=== PATIENT | female | born 1975 | race Hispanic/Latino ===

== ENCOUNTER 2017-12-01 15:18 | Emergency (ER) | payer OTHER ==
[~2017-12-01 15:18] MED LIST: ALBU90AE IH; ASPI-555 PO; ATOR10 PO; CANA300T PO; ESCI20TA PO; GABA-529 PO; HYDR200T4 PO; LACT1CAP58 PO; NITR0.4T SL; PANT40TA25 PO; PROM12.510 PO; SITA100T12 PO; TRAM50TA4 PO; VALS160T2 PO
[2017-12-01 15:46] LABS: APPEARANCE,URINE Clear (CLEAR); BILIRUBIN,URINE Negative (NEGATIVE); COLOR,URINE Yellow (YELLOW); GLUCOSE, URINE (UA) >=1000 mg/dL (NEGATIVE); KETONES,URINE Negative (NEGATIVE); LEUKOCYTE ESTERASE ,URINE Negative (NEGATIVE); NITRATE,URINE Negative (NEGATIVE); OCCULT BLOOD,URINE Negative (NEGATIVE); PROTEIN,URINE Negative (NEGATIVE); UROBILINOGEN,URINE 0.2 mg/dL (0.2-1.0)
[2017-12-01 15:49] LABS: HCG,QUAL RESULT NEGATIVE (NEGATIVE)
[2017-12-01 15:53] LABS: BACTERIA,URINE Rare /HPF (None Seen); RBC,URINE 0-1 /HPF (0-1); SQUAMOUS EPITHELIAL CELL,UR Rare /HPF (0-2); WBC,URINE 0-1 /HPF (0-1)
[2017-12-01 16:00] LABS: EOSINOPHILS % (AUTO) 1.1 % (0.0-8.0); HEMATOCRIT 41.7 % (36-48); LYMPHOCYTES % (AUTO) 23.1 % (21.0-51.0); MEAN CORPUSCULAR HEMOGLOBIN 30.6 pg (27.0-33.0); MEAN CORPUSCULAR VOLUME 87.2 fL (79-99); MONOCYTES % (AUTO) 5.8 % (3.0-13.0); PLATELET COUNT (AUTO) 362 K/uL (130-400); RED BLOOD CELL COUNT(AUTO) 4.78 MIL/uL (4.00-5.50); RED CELL DISTRIBUTION WIDTH 12.6 % (11.0-15.5); WHITE BLOOD COUNT (AUTO) 11.9 K/uL (4.8-10.8)
[2017-12-01 16:09] LABS: CREATININE 0.8 mg/dL (0.5-1.5); POTASSIUM 4.4 mmol/L (3.5-5.1)
[2017-12-01 16:13] LABS: ALBUMIN 3.8 g/dL (3.5-5.0); BILIRUBIN,TOTAL 0.2 mg/dL (0.2-1.0); TOTAL PROTEIN, SERUM 7.4 g/dL (6.0-8.3)
[2017-12-01] MEDS ORDERED: MORPHINE SULFATE 4 MG/1ML SYG ONE ×2 (16:25→18:55)
[2017-12-01] MEDS ORDERED: ONDANSETRON HCL MDV 20ML 2 MG/ML VIAL ONE (16:25)
== END 2017-12-01 19:41 | disposition home or self-care (01) ==
LOC: EDH 15:18
DX: R10.9 Unspecified abdominal pain (principal); M79.7 Fibromyalgia; M54.9 Dorsalgia, unspecified; I10 Essential (primary) hypertension; E11.9 Type 2 diabetes mellitus without complications; E78.5 Hyperlipidemia, unspecified; M19.90 Unspecified osteoarthritis, unspecified site; Z88.1 Allergy status to other antibiotic agents; Z88.8 Allergy status to other drugs, medicaments and biological substances
CPT/HCPCS: 36415; 74176; 80053; 81001; 81025; 82550; 83690; 84484; 85025; 96361; 96374; 96375; 96376; 99285; J2270 ×2

== ENCOUNTER → 2018-01-25 | Outpatient (CLI) | payer OTHER | END | disposition home or self-care (01) | LOC: RAH 15:55 | PROVIDERS: ATTEND Internal Medicine | DX: J06.9 Acute upper respiratory infection, unspecified (principal) | CPT/HCPCS: 71046 ==

== ENCOUNTER → 2018-06-08 | Outpatient (CLI) | payer OTHER | END | disposition home or self-care (01) | LOC: RAH 10:11 | PROVIDERS: ATTEND Internal Medicine | DX: M19.072 Primary osteoarthritis, left ankle and foot (principal); M25.472 Effusion, left ankle; M77.32 Calcaneal spur, left foot | CPT/HCPCS: 73610; 73630 ==

== ENCOUNTER → 2018-09-30 | Outpatient (CLI) | payer OTHER | END | disposition home or self-care (01) | LOC: RAH 10:58 | PROVIDERS: ATTEND Internal Medicine | DX: M54.5 Low back pain (principal); M54.6 Pain in thoracic spine | CPT/HCPCS: 72100; 72220 ==

== ENCOUNTER → 2019-01-09 | Outpatient (CLI) | payer OTHER | END | disposition home or self-care (01) | LOC: RAH 15:48 | PROVIDERS: ATTEND Internal Medicine | DX: M79.662 Pain in left lower leg (principal); R40.4 Transient alteration of awareness | CPT/HCPCS: 93971 ==

== ENCOUNTER → 2019-03-22 | Outpatient (CLI) | payer OTHER ==
[~2019-03-22] MED LIST changes: -PROM12.510 PO; +PROM12.513 PO
== END | disposition home or self-care (01) ==
LOC: RAH 11:33
PROVIDERS: ATTEND Internal Medicine
DX: R06.02 Shortness of breath (principal)
CPT/HCPCS: 71046

== ENCOUNTER → 2020-11-07 | Outpatient (CLI) | payer OTHER ==
[~2020-11-07] MED LIST changes: -ASPI-555 PO; +ASPI-556 PO; -PANT40TA25 PO; +PANT40TA54 PO
== END | disposition home or self-care (01) ==
LOC: RAH 11:51
PROVIDERS: ATTEND Internal Medicine
DX: M25.562 Pain in left knee (principal); M25.572 Pain in left ankle and joints of left foot
CPT/HCPCS: 73562; 73610

== ENCOUNTER → 2020-11-21 | Outpatient (CLI) | payer OTHER | END | disposition home or self-care (01) | LOC: RAH 11:43 | PROVIDERS: ATTEND Internal Medicine | DX: M47.812 Spondylosis without myelopathy or radiculopathy, cervical region (principal) | CPT/HCPCS: 72100 ==

== ENCOUNTER → 2020-11-26 | Outpatient (CLI) | payer OTHER | END | disposition home or self-care (01) | LOC: RAH 11:14 | PROVIDERS: ATTEND Internal Medicine | DX: N93.9 Abnormal uterine and vaginal bleeding, unspecified (principal); D25.9 Leiomyoma of uterus, unspecified | CPT/HCPCS: 76856 ==

== ENCOUNTER → 2021-04-02 | Outpatient (CLI) | payer OTHER | END | disposition home or self-care (01) | LOC: RAH 12:36 | PROVIDERS: ATTEND Internal Medicine | DX: N64.4 Mastodynia (principal); M25.552 Pain in left hip | CPT/HCPCS: 73502; 73552 ==

== ENCOUNTER → 2022-01-07 | Outpatient (CLI) | payer OTHER | END | disposition home or self-care (01) | LOC: RAH 09:15 | PROVIDERS: ATTEND Internal Medicine | DX: I73.9 Peripheral vascular disease, unspecified (principal) | CPT/HCPCS: 93925 ==

== ENCOUNTER → 2022-01-15 | Outpatient (CLI) | payer OTHER | END | disposition home or self-care (01) | LOC: RAH 13:19 | PROVIDERS: ATTEND Internal Medicine Cardiovascular Disease | DX: Z13.6 Encounter for screening for cardiovascular disorders (principal) | CPT/HCPCS: 75571 ==

== ENCOUNTER → 2022-01-19 | Outpatient (CLI) | payer OTHER ==
[~2022-01-19] VITALS: Ht 162.6 cm; Wt 101.2 kg
[~2022-01-19] MED LIST changes: +REGADENOSON 0.4 MG/5 ML PF SYG IVP SCH
== END | disposition home or self-care (01) ==
LOC: SHCH 08:45
PROVIDERS: ATTEND Internal Medicine Cardiovascular Disease
DX: R06.09 Other forms of dyspnea (principal); R00.2 Palpitations; R53.83 Other fatigue
CPT/HCPCS: 78452; 93017; 96374; A9500 ×2; J2785

== ENCOUNTER → 2022-11-19 | Outpatient (CLI) | payer OTHER ==
[~2022-11-19] MED LIST changes: -REGADENOSON 0.4 MG/5 ML PF SYG IVP SCH
== END | disposition home or self-care (01) ==
LOC: RAH 13:18
PROVIDERS: ATTEND Internal Medicine
DX: M77.32 Calcaneal spur, left foot (principal); M25.562 Pain in left knee; M79.672 Pain in left foot
CPT/HCPCS: 73560; 73630

== ENCOUNTER → 2023-12-07 | Outpatient (CLI) | payer OTHER ==
[~2023-12-07] MED LIST changes: -HYDR200T4 PO; +HYDR200T75 PO
== END | disposition home or self-care (01) ==
LOC: SHCH 13:47
PROVIDERS: ATTEND Internal Medicine Cardiovascular Disease
DX: I87.2 Venous insufficiency (chronic) (peripheral) (principal); I87.1 Compression of vein
CPT/HCPCS: 93970

== ENCOUNTER → 2024-03-25 | Outpatient (CLI) | payer OTHER | END | disposition home or self-care (01) | LOC: SHCH 13:06 | PROVIDERS: ATTEND Internal Medicine Cardiovascular Disease | DX: I34.0 Nonrheumatic mitral (valve) insufficiency (principal); R00.2 Palpitations; E11.9 Type 2 diabetes mellitus without complications; I10 Essential (primary) hypertension; E78.5 Hyperlipidemia, unspecified | CPT/HCPCS: 93306 ==

== ENCOUNTER 2024-12-21 11:13 | Observation (INO) | payer OTHER, MEDICAID ==
[~2024-12-21] VITALS: Ht 162.6 cm; Wt 103.9 kg
[2024-12-21 11:55] LABS: BASOPHILS # (AUTO) 0.04 K/uL (0.00-0.20); BASOPHILS % (AUTO) 0.6 % (0.0-5.0); EOSINOPHILS # (AUTO) 0.14 K/uL (0.00-0.70); HEMATOCRIT 42.3 % (36-48); IMMATURE GRANULOCYTE ABSOLUTE 0.03 K/uL (0-1); LYMPHOCYTES # (AUTO) 2.9 K/uL (1.0-4.8); LYMPHOCYTES % (AUTO) 41.2 % (21.0-51.0); MEAN CORPUSCULAR HEMOGLOBIN 29.8 pg (27.0-33.0); MEAN CORPUSCULAR HGB CONC 33.6 g/dL (32.0-36.0); MEAN CORPUSCULAR VOLUME 88.9 fL (79-99); MONOCYTES # (AUTO) 0.6 K/uL (0.1-1.0); MONOCYTES % (AUTO) 8.5 % (3.0-13.0); NEUTROPHILS # (AUTO) 3.3 K/uL (1.8-7.7); NEUTROPHILS % (AUTO) 47.3 % (40.0-77.0); PLATELET COUNT (AUTO) 318 K/uL (130-400); RED BLOOD CELL COUNT(AUTO) 4.76 MIL/uL (4.00-5.50); RED CELL DISTRIBUTION WIDTH 12.4 % (11.0-15.5); WHITE BLOOD COUNT (AUTO) 6.9 K/uL (4.8-10.8)
[2024-12-21 11:57] LABS: APPEARANCE,URINE CLOUDY (CLEAR); BILIRUBIN,URINE NEGATIVE (NEGATIVE); COLOR,URINE YELLOW (YELLOW); GLUCOSE, URINE (UA) 30 mg/dL (NEGATIVE); KETONES,URINE 5 mg/dL (NEGATIVE); LEUKOCYTE ESTERASE ,URINE NEGATIVE Leu/uL (NEGATIVE); NITRATE,URINE NEGATIVE (NEGATIVE); OCCULT BLOOD,URINE NEGATIVE (NEGATIVE); PROTEIN,URINE NEGATIVE (NEGATIVE); UROBILINOGEN,URINE 0.2 mg/dL (0.2-1.0)
[2024-12-21 12:02] LABS: CREATININE 0.8 mg/dL (0.5-1.0); POTASSIUM 3.7 mmol/L (3.5-5.1)
[2024-12-21 12:04] LABS: ADD UA MICROSCOPIC YES
[2024-12-21 12:06] LABS: BACTERIA,URINE Rare /HPF (None Seen); MUCUS,URINE Rare LPF (None Seen); SQUAMOUS EPITHELIAL CELL,UR Rare /HPF (0-2)
[2024-12-21 12:21] LABS: B-TYPE NATRIURETIC PEPTIDE 7 pg/mL (0-100)
--- NOTE | 2024-12-21 12:42 | HMCIMG ---
Exam Type: CHEST 1VW Clinical Information: CHEST PAIN Comparison: None Findings: The lungs are clear of infiltrates. The heart is normal in size. The bony and soft tissue structures of the chest are unremarkable. Impression: Clear lungs.
--- NOTE | 2024-12-21 13:29 | EKG ---
[facility] Test Date: 2024-12-21 Test Time: 11:26:38 Pat Name: NYDIA JOHNSON Department: ED Room: 413 Gender: F [place]: [id number] : 1975 Requested By: CINDY LIZ Order Number: [id number] Reading MD: Maribel Tracy Measurements Intervals [place] Rate: 83 P: -6 DE: 114 QRS: 13 QRSD: 75 T: -8 QT: 387 QTc: 455 Interpretive Statements Sinus rhythm Low voltage, precordial leads Compared to ECG 04/14/2017 14:17:03 No significant changes Electronically Signed On 12-22-2024 18:39:23 CDT by Maribel Tracy Please click the below link to view image of tracing.
--- NOTE | 2024-12-21 13:49 | ERN ---
General Chief Complaint: Chest Pain Stated Complaint: CP Time Seen by MD: 11:13 Source: patient History of Present Illness Initial Comments Patient is a 49 year old female coming in to be evaluated for chest pressure. Patient states that the symptoms began a couple of days ago. She was concerned because of the presentation in the location of the discomfort. She states he does not has a history of cardiac issues. Allergies: Coded Allergies: amoxicillin (Unverified Allergy, Unknown, RASH , 02/17/16) duloxetine (Unverified Allergy, Unknown, HALLUCINATIONS, 02/17/16) modafinil (Unverified Allergy, Unknown, N/V STOMACH PAIN, 02/17/16) pregabalin (Unverified Allergy, Unknown, FLUID RETENTION, 02/17/16) Home Meds Active Scripts Lactobacillus Rhamnosus GG (Culturelle) 1 Each Capsule, 1 EACH PO DAILY, #30 CAP Prov:SHAMIR MCKEON MD 04/15/17 Reported Medications Tramadol Hcl (Tramadol HCl) 50 Mg Tablet, 50 MG PO HS PRN for PAIN LEVEL 4 TO 6, TAB 04/14/17 Promethazine HCl (Promethazine HCl) 12.5 Mg Tablet, 12.5 MG PO TID PRN for NAUSEA/VOMITING, TAB 04/14/17 Albuterol Sulfate (Proair Respiclick) 90 Mcg Aer.pow.ba, 90 MCG IH Q3YWOIA PRN for SHORTNESS OF BREATH 04/14/17 Pantoprazole Sodium (Pantoprazole Sodium) 40 Mg Tablet.dr, 40 MG PO AM, TAB 04/14/17 Nitroglycerin (Nitrostat) 0.4 Mg Tab.subl, 0.4 MG SL STAT PRN for CHEST PAIN, TAB.SL 04/14/17 Escitalopram Oxalate (Lexapro) 20 Mg Tablet, 20 MG PO AM, TAB 04/14/17 Canagliflozin (Invokana) 300 Mg Tablet, 300 MG PO HS, TAB 04/14/17 Hydroxychloroquine Sulfate (Hydroxychloroquine Sulfate) 200 Mg Tablet, 200 MG PO BID, TAB 04/14/17 Gabapentin (Gabapentin) 100 Mg Capsule, 100 MG PO BID, CAP 04/14/17 Aspirin (Aspir 81) 81 Mg Tablet.dr, 81 MG PO AM, TAB 04/14/17 Atorvastatin Calcium (LIPITOR) 20 Mg Tab, 20 MG PO HS, TAB 04/14/17 Valsartan (Diovan) 160 Mg Tablet, 160 MG PO HS, TAB 02/17/16 Sitagliptin Phosphate (Januvia) 100 Mg Tablet, 100 MG PO DAILY, TAB 02/17/16 Past Medical History Past Medical History: Diabetes-Type II, High Cholesterol, Hypertension Past Surgical History: Cholecystectomy, BTL Results Laboratory and Microbiology Lab and Micro Result Laboratory Tests Test 12/21/24 11:00 12/21/24 11:29 12/21/24 13:33 White Blood Count 6.9 K/uL (4.8-10.8) Red Blood Count 4.76 MIL/uL (4.00-5.50) Hemoglobin 14.2 g/dL (12.0-16.0) Hematocrit 42.3 % (36-48) Mean Corpuscular Volume 88.9 fL (79-99) Mean Corpuscular Hemoglobin 29.8 pg (27.0-33.0) Mean Corpuscular Hemoglobin Concent 33.6 g/dL (32.0-36.0) Red Cell Distribution Width 12.4 % (11.0-15.5) Platelet Count 318 K/uL (130-400) Mean Platelet Volume 9.1 fL (7.5-10.5) Immature Granulocyte % (Auto) 0.4 % (0-1) Neutrophils (%) (Auto) 47.3 % (40.0-77.0) Lymphocytes (%) (Auto) 41.2 % (21.0-51.0) Monocytes (%) (Auto) 8.5 % (3.0-13.0) Eosinophils (%) (Auto) 2.0 % (0.0-8.0) Basophils (%) (Auto) 0.6 % (0.0-5.0) Neutrophils # (Auto) 3.3 K/uL (1.8-7.7) Lymphocytes # (Auto) 2.9 K/uL (1.0-4.8) Monocytes # (Auto) 0.6 K/uL (0.1-1.0) Eosinophils # (Auto) 0.14 K/uL (0.00-0.70) Basophils # (Auto) 0.04 K/uL (0.00-0.20) Absolute Immature Granulocyte (auto 0.03 K/uL (0-1) Nucleated Red Blood Cells 0.0 % (0.0-0.19) Sodium Level 141 mmol/L (136-145) Potassium Level 3.7 mmol/L (3.5-5.1) Chloride Level 104 mmol/L (101-111) Carbon Dioxide Level 26 mmol/L (21-32) Blood Urea Nitrogen 14 mg/dL (7-18) Creatinine 0.8 mg/dL (0.5-1.0) Glomerular Filtration Rate Calc 90 mL/min (>90) Random Glucose 170 mg/dL (70-105) H Total Calcium 9.1 mg/dL (8.5-10.1) Total Creatine Kinase 42 U/L (21-232) # Troponin I High Sensitivity < 4 ng/L (4-50) L 8 ng/L (4-50) B-Type Natriuretic Peptide 7 pg/mL (0-100) Urine Color YELLOW (YELLOW) Urine Appearance CLOUDY (CLEAR) H Urine pH 5.0 (5.0-8.0) Urine Specific [place] 1.028 (1.001-1.031) Urine Protein NEGATIVE mg/dL (NEGATIVE) Urine Glucose (UA) 30 mg/dL (NEGATIVE) H Urine Ketones 5 mg/dL (NEGATIVE) H Urine Occult Blood NEGATIVE (NEGATIVE) Urine Nitrate NEGATIVE (NEGATIVE) Urine Bilirubin NEGATIVE mg/dL (NEGATIVE) Urine Urobilinogen 0.2 mg/dL (0.2-1.0) Urine Leukocyte Esterase NEGATIVE Cameron/uL Urine RBC 2-5 /HPF (0-1) H Urine WBC 2-5 /HPF (0-1) H Urine WBC Clumps (Auto) /HPF (0-1) Urine Squamous Epithelial Cells Rare /HPF (0-2) Urine Bacteria Rare /HPF (None Seen) EKG/XRAY/US/CT/MRI EKG Comment 12/21/2024 time 11:26 a.m. Ventricular rate 83 Sinus rhythm [place] [address] wave elevation or depression X-RAY Comment [place] [address] [place] [id number] IMAGING REPORT Signed PATIENT: NYDIA JOHNSON MR#: [id number] : 1975 SEX: F AGE: 49 LOCATION: [facility] ORDER 13 STATUS: REG ER REPORT#: [id number] SERVICE [id number] REASON: CHEST PAIN ORDERING PHYSICIAN: CINDY LIZ MD PROCEDURE: CXR1VW - CHEST 1VW Exam Type: CHEST 1VW Clinical Information: CHEST PAIN Comparison: None Findings: The lungs are clear of infiltrates. The heart is normal in size. The bony and soft tissue structures of the chest are unremarkable. Impression: Clear lungs. DICTATED BY: JADE BRAGG MD DATE: 12/21/24 1239 ELECTRONICALLY SIGNED BY: JADE BRAGG MD DATE: 12/21/24 1242 MDM MDM: Differential diagnosis: Chest pain, NSTEMI, Rationale: Tests considered and ordered secondary to shared decision making include: labs, ECG and radiology Previous outside records reviewed: Old ER visits. Risk of complication and/or morbidity or mortality of patient management: None Medications-Per medication reconciliation Need for hospitalization: Patient does meet criteria for hospitalization. Need for emergency major/minor surgery: No There are no social concerns with this patient. Prescription drug management Prescriptions will include symptomatic care Patient's prior external medical records from other ER visits were reviewed by me as indicated. Prior testing and results from previous visits were reviewed. Prior tests were taken into account with medical decision making and resource utilization, independent historian/historians were used to obtain complete medical history. I independently interpreted the test that were performed, results were reviewed by me and considered findings on radiology if ordered. Medical management and examination interpretation discussions were had by me with other qualified healthcare professionals as indicated for the patient's care. Patient is a 49-year-old female coming in to be evaluated for chest pressure chest discomfort. She states that the this has been ongoing for a couple of days but has been progressively getting worse. Laboratory workup negative for acute findings. But because of the chest pressure patient will be admitted for ongoing evaluation and management. ED Course Orders Procedure Category Date Status Time Vital Signs Per CPOE 12/21/24 Transmitted Routine 11:13 B-Type Natriuretic LAB 12/21/24 Complete Peptide 11:13 Chest 1vw RAD 12/21/24 Resulted 11:13 12 Lead Ekg Tracing- EKG 12/21/24 Complete Technical 11:13 Oxygen By Nc/Pulse Ox CPOE 12/21/24 Transmitted 11:13 Maintain Iv CPOE 12/21/24 Transmitted 11:13 Iv Insertion CPOE 12/21/24 Transmitted 11:13 Cardiac Monitoring CPOE 12/21/24 Transmitted 11:13 Pulse Oximetry With CPOE 12/21/24 Transmitted Vs And Prn 11:13 Cbc With Differential LAB 12/21/24 Complete 11:13 Activity: Br W/Brp CPOE 12/21/24 Transmitted With Assist 11:13 Creatine Kinase, Total LAB 12/21/24 Complete 11:13 Troponin I High LAB 12/21/24 Complete Sensitivity 11:13 Urinalysis Profile LAB 12/21/24 Complete 11:13 Basic Metabolic Panel LAB 12/21/24 Complete 11:13 Troponin I High LAB 12/21/24 Complete Sensitivity 13:12 Ondansetron 4mg Inj PHA 12/21/24 Complete (Zofran 4mg Inj) 14:00 Lidocaine Hcl 2% PHA 12/21/24 Complete Viscous (Lidocaine Hcl 14:00 Mag/Alum/Simeth 30ml PHA 12/21/24 Complete (Maalox Plus 30ml) 14:00 Pantoprazole 40mg Inj PHA 12/21/24 Complete (Protonix 40mg Inj 14:00 Ketorolac PHA 12/21/24 Complete Tromethamine 30mg/Ml 15:00 Current Medications Medications (Trade) Dose Ordered Sig/Shon Route PRN Reason Start Time Stop Time Status Last Admin Dose Admin Al Hydroxide/Mg Hydroxide (MAALox PLUS 30ML) 30 ml ONCE ONCE PO 12/21/24 14:00 12/21/24 14:01 DC 12/21/24 13:57 Ketorolac Tromethamine (toRADol) 30 mg ONCE ONCE IVP 12/21/24 15:00 12/21/24 15:01 DC 12/21/24 15:03 Lidocaine HCl (Lidocaine HCl 2% Viscous) 10 ml ONCE ONCE PO 12/21/24 14:00 12/21/24 14:01 DC 12/21/24 13:57 Ondansetron HCl (zoFRAN 4MG INJ) 4 mg ONCE ONCE IVP 12/21/24 14:00 12/21/24 14:01 DC 12/21/24 13:57 Pantoprazole Sodium (PROTonix 40MG INJ) 40 mg ONCE ONCE IVP 12/21/24 14:00 12/21/24 14:01 DC 12/21/24 13:57 Vital Signs Date Time Temp Pulse Resp B/P (MAP) Pulse Ox O2 Delivery O2 Flow Rate FiO2 12/21/24 13:35 97.9 75 16 175/99 98 Room Air* 0 21 12/21/24 12:35 98.1 75 16 171/96 98 Room Air* 0 21 12/21/24 11:20 98.1 80 16 98 Room Air* 0 21 12/21/24 11:15 98.1 80 20 201/104 100 Room Air 0 DX & DISP Disposition: Inpatient Decision to Admit Time: 15:25 Departure Impression: Primary Impression: Chest pain Additional Impressions: Chest pressure, Shortness of breath Condition: Stable Referrals: WEST ROACH MD (PCP) CINDY LIZ MD December 21, 2024 13:49
[2024-12-21] MEDS: ondanSETRON 4MG INJ IVP ONE (13:57)
[2024-12-21] MEDS: LIDOCAINE HCL 2% VISCOUS 15 ML UDCUP PO ONE (13:57)
[2024-12-21] MEDS: MAG/ALUM/SIMETH 30 ML UDCUP PO ONE (13:57)
[2024-12-21] MEDS: PANTOPrazole 40 MG/VIAL IVP ONE (13:57)
[2024-12-21] MEDS: ketOROlac 30MG VIAL (30MG/ML) IVP ONE (15:03)
[2024-12-21] MEDS ORDERED: NITROGLYCERIN 0.4 MG SL TAB SL PRN ×2 (15:30→16:30)
[2024-12-21] MEDS ORDERED: guaiFENesin-DM 200/20MG 10ML PO PRN (16:30)
[2024-12-21] MEDS ORDERED: MAGNESIUM 2GM PREMIX 50ML 50 ML IV PRN (16:30)
[2024-12-21] MEDS ORDERED: LACTULOSE 20 GM/30 ML UDCUP PO PRN (16:30)
[2024-12-21] MEDS ORDERED: DEXTROSE 50%-WATER 50 ML DISP.SYRIN IV PRN (16:30)
[2024-12-21] MEDS ORDERED: ondanSETRON 4MG INJ IV PRN (16:30)
[2024-12-21] MEDS ORDERED: ketOROlac 15MG/ML VIAL (15MG/ML) IV PRN (16:30)
[2024-12-21] MEDS ORDERED: DiphenhydrAMINE HCL 50 MG/ML VIAL IV PRN (16:30)
[2024-12-21] MEDS ORDERED: PoTASSium chloRIDE 20MEQ ER 20 MEQ ERTAB PO PRN (16:30)
[2024-12-21] MEDS: INSULIN humuLIN R 100 UNIT/ML 3ML SQ SCH (16:30)
[2024-12-21] MEDS ORDERED: acetaMINOPHEN 325 MG TAB PO PRN ×2 (16:30)
[2024-12-21] MEDS ORDERED: ZOLPidem TARTrate 5 MG TAB PO PRN (16:30)
[2024-12-21] MEDS ORDERED: MAG/ALUM/SIMETH 30 ML UDCUP PO PRN (16:30)
[2024-12-21] MEDS ORDERED: PoTASSium chloRIDE 20MEQ/100ML 100 ML IV PRN (16:30)
[2024-12-21] MEDS ORDERED: FAMOTIDINE 20MG VIAL IV PRN (16:30)
[2024-12-21] MEDS ORDERED: GLUCAGON 1MG KIT 1 MG ML IM PRN (16:30)
[2024-12-21] MEDS ORDERED: PoTASSium chl 10% ELIXIR 20MEQ 20 MEQ/15 ML UDCUP PO PRN (16:30)
[2024-12-21] MEDS: PoTASSium chloRIDE 20MEQ ER 20 MEQ ERTAB PO ONE (17:12)
[2024-12-21] MEDS: ASPIRIN 325MG EC TAB PO ONE (17:13)
--- NOTE | 2024-12-21 18:14 | HP ---
[facility] HISTORY AND PHYSICAL Date of Service: December 21, 2024 Time of Service: 18:03 PCP: DR WEST ROACH Admitting: Dr Swenson, Allergies: AMOXICILLIN, DULOXETINE, MODAFINIL, PREGABALIN HISTORY OF PRESENT ILLNESS: [ PATIENT IS 49 YEARS OLD FEMALE WITH A PAST MEDICAL HISTORY OF DIABETES, HYPERTENSION, HYPERLIPIDEMIA, OBSTRUCTIVE SLEEP APNEA ON CPAP, COPD, ASTHMA, TONSILLECTOMY, CHOLECYSTECTOMY, WHO CAME TO EMERGENCY DEPARTMENT WITH A COMPLAINT OF CHEST PRESSURE. PATIENT STILL DID THAT THE SYMPTOMS BEGAN ABOUT 10:30 A.M. WHEN SHE WAS SITTING. PATIENT DENIES EATING OR DRINKING ANYTHING HOT OCCULT AT THAT MOMENT. PATIENT STATED THAT IT FELT LIKE SOMETHING IS SITTING ON HER CHEST AND SQUEEZING HER. PATIENT DENIES ANY RADIATION OF THE PAIN. PATIENT STATED THAT SHE FEELS A PRESSURE 8/10 ESPECIALLY WHEN SHE BREATHES IN WHEN SHE BREATHS OUT THE PRESSURE GOES AWAY. SHE HAS A PATIENT OF DR. RAJPUT FROM [facility] [address] HER NEXT APPOINTMENT IS DECEMBER 29, 2024 MOST RECENT VITAL SIGNS TEMPERATURE 97.9 PULSE 75 RESPIRATIONS 16 BLOOD PRESSURE 171/96, PATIENT IS ON ROOM AIR SATTING 98%. WBC 6.9 HEMOGLOBIN 14.2 HEMATOCRIT 42.3 PLATELETS 318 SODIUM 141 POTASSIUM 3.7 CO2 26 BUN 14 CREATININE 0.8 GFR 90 RANDOM GLUCOSE 170 TROPONIN NEGATIVE X2 BNP 7 URINALYSIS NEGATIVE. CHEST X-RAY CLEAR LUNGS. 2D ECHO PENDING PATIENT WILL BE ADMITTED UNDER HOSPITALIST CARE FOR FURTHER EVALUATION/RECOMM ENDATION. A.M. LABS. REVIEW OF SYSTEMS CONSTITUTIONAL: Denies fevers, chills, or night sweats. No unintentional weight loss reported. NEUROLOGICAL: Denies headache, amaurosis fugax, motor weakness, sensory deficit, vertigo/spinning sensation, gait abnormalities, or tremors. ENT: No hearing loss, otalgia, otorrhea, rhinitis, rhinorrhea, hoarseness, or sore throat. CARDIOVASCULAR: Denies any dyspnea on exertion, orthopnea, paroxysmal nocturnal dyspnea, palpitations, life-threatening arrhythmias, claudication. COMPLAINS OF CHEST PRESSURE PULMONARY: Denies any shortness of breath, cough, phlegm/sputum, hemoptysis, pleuritic chest pain. SLEEP: Denies morning headaches, daytime somnolence or napping. Denies difficulty falling asleep, staying asleep, waking from sleep. Denies knowledge of snoring. GASTROINTESTINAL: Denies any type of dysphagia to either liquids or solids. Denies nausea, vomiting, pyrosis, early satiety, abdominal pain, diarrhea, constipation, or changes in stool consistency or caliber. Denies coffee-ground emesis, hematemesis, hematochezia, or melanotic stools. GENITOURINARY: Denies frequency, urgency, nocturia, hematuria or incontinence (Storage/Irritative symptoms.) Low urinary stream, straining to void, urinary intermittency or hesitancy, splitting of the voiding stream, terminal dribbling. ENDOCRINOLOGIC: Denies polyuria, polydipsia, polyphagia or heat/cold intolerances. HEMATOLOGIC: Denies thrombophilia/previous clots, or coagulopathy/bleeding diso rders. ONCOLOGIC: Denies personal history of malignancy. DERMATOLOGIC: Denies rashes or pruritus. PSYCHIATRIC: Denies any suicidal or homicidal ideation. Denies hallucinations. PAST MEDICAL HISTORY: [DIABETES, HYPERTENSION, HYPERLIPIDEMIA, OBSTRUCTIVE SLEEP APNEA ON CPAP, F IBROMYALGIA, COPD, ASTHMA, RHEUMATOID ARTHRITIS, GASTROENTERITIS ] PAST SURGICAL HISTORY: [ TONSILLECTOMY, CHOLECYSTECTOMY, CYST ON BACK THAT WAS REMOVED] PAST SOCIAL HISTORY: [ PATIENT DRINKS OCCASIONALLY. PATIENT DENIES ANY DRUG ILLICIT. PATIENT DENIES SMOKING ] FAMILY HISTORY: [ PATIENT LIVES AT HOME WITH HER CHILD. PATIENT IS INDEPENDENT. ] Coded Allergies: amoxicillin (Unverified Allergy, Unknown, RASH , 02/17/16) duloxetine (Unverified Allergy, Unknown, HALLUCINATIONS, 02/17/16) modafinil (Unverified Allergy, Unknown, N/V STOMACH PAIN, 02/17/16) pregabalin (Unverified Allergy, Unknown, FLUID RETENTION, 02/17/16) PHYSICAL EXAM GENERAL APPEARANCE: The patient is awake, alert, and oriented, in no acute cardiopulmonary distress. NEUROLOGICAL: Cranial nerves II-XII grossly intact. Motor is 5/5 in bilateral upper and lower extremities proximal to distal. No sensory deficits. HEENT: Face is symmetric. Pupils are equal and reactive. Extraocular movements are intact. NECK: Supple. No JVD. No thyromegaly. No submental, submandibular, pre- /postauricular, occipital or supraclavicular lymphadenopathy. CHEST: Normal chest expansion. No Telemetry. LUNGS: Absence of any rales, rhonchi or any wheezing. CARDIOVASCULAR: Regular. S1 and S2 normal. No appreciable rubs, murmurs or gallops. ABDOMEN: Soft, nontender, and nondistended. There is no rebound, voluntary guarding, or rigidity. : Deferred. No Gray. EXTREMITIES: Non-edematous and not cyanotic. No clubbing. Good capillary refill. SKIN: No skin breakdown. Vital Sign (Last 24 Hours) 12/21/24 13:35 Temp 97.9 Pulse 75 Resp 16 B/P (MAP) 175/99 Pulse Ox 98 O2 Delivery Room Air* O2 Flow Rate 0 FiO2 21 LABS: Laboratory: Test 12/21/24 16:54 12/21/24 13:33 12/21/24 11:29 12/21/24 11:00 Range/Units Whole Blood Glucose 127 H 70-110 MG/DL Troponin I High Sensitivity 8 4-50 ng/L Urine Color YELLOW YELLOW Urine Appearance CLOUDY H CLEAR Urine pH 5.0 5.0-8.0 Urine Specific [place] 1.028 1.001-1.031 Urine Protein NEGATIVE NEGATIVE mg/dL Urine Glucose (UA) 30 H NEGATIVE mg/dL Urine Ketones 5 H NEGATIVE mg/dL Urine Occult Blood NEGATIVE NEGATIVE Urine Nitrate NEGATIVE NEGATIVE Urine Bilirubin NEGATIVE NEGATIVE mg/dL Urine Urobilinogen 0.2 0.2-1.0 mg/dL Urine Leukocyte Esterase NEGATIVE NEGATIVE Cameron/uL Urine RBC 2-5 H 0-1 /HPF Urine WBC 2-5 H 0-1 /HPF Urine WBC Clumps (Auto) 0-1 /HPF Urine Squamous Epithelial Cells Rare 0-2 /HPF Urine Bacteria Rare None Seen /HPF White Blood Count 6.9 4.8-10.8 K/uL Red Blood Count 4.76 4.00-5.50 MIL/uL Hemoglobin 14.2 12.0-16.0 g/dL Hematocrit 42.3 36-48 % Mean Corpuscular Volume 88.9 79-99 fL Mean Corpuscular Hemoglobin 29.8 27.0-33.0 pg Mean Corpuscular Hemoglobin Concent 33.6 32.0-36.0 g/dL Red Cell Distribution Width 12.4 11.0-15.5 % Platelet Count 318 130-400 K/uL Mean Platelet Volume 9.1 7.5-10.5 fL Immature Granulocyte % (Auto) 0.4 0-1 % Neutrophils (%) (Auto) 47.3 40.0-77.0 % Lymphocytes (%) (Auto) 41.2 21.0-51.0 % Monocytes (%) (Auto) 8.5 3.0-13.0 % Eosinophils (%) (Auto) 2.0 0.0-8.0 % Basophils (%) (Auto) 0.6 0.0-5.0 % Neutrophils # (Auto) 3.3 1.8-7.7 K/uL Lymphocytes # (Auto) 2.9 1.0-4.8 K/uL Monocytes # (Auto) 0.6 0.1-1.0 K/uL Eosinophils # (Auto) 0.14 0.00-0.70 K/uL Basophils # (Auto) 0.04 0.00-0.20 K/uL Absolute Immature Granulocyte (auto 0.03 0-1 K/uL Nucleated Red Blood Cells 0.0 0.0-0.19 % Sodium Level 141 136-145 mmol/L Potassium Level 3.7 3.5-5.1 mmol/L Chloride Level 104 101-111 mmol/L Carbon Dioxide Level 26 21-32 mmol/L Blood Urea Nitrogen 14 7-18 mg/dL Creatinine 0.8 0.5-1.0 mg/dL Glomerular Filtration Rate Calc 90 >90 mL/min Random Glucose 170 H 70-105 mg/dL Total Calcium 9.1 8.5-10.1 mg/dL Total Creatine Kinase 42 # 21-232 U/L B-Type Natriuretic Peptide 7 0-100 pg/mL Current Medications Medications (Trade) Dose Ordered Sig/Shon Route PRN Reason Start Time Stop Time Status Last Admin Dose Admin Acetaminophen (TYLenol 325MG TAB) 650 mg Q4H PRN PO MILD PAIN (1-3) 12/21/24 16:30 01/20/25 16:29 Acetaminophen (TYLenol 325MG TAB) 650 mg Q6H PRN PO MILD PAIN (1-3) 12/21/24 16:30 01/20/25 16:29 Acetaminophen (TYLenol 325MG TAB) 650 mg Q6H PRN PO TEMPERATURE GREATER THAN 101.5 12/21/24 16:30 01/20/25 16:29 Al Hydroxide/Mg Hydroxide (MAALox PLUS 30ML) 30 ml Q6H PRN PO INDIGESTION 12/21/24 16:30 01/20/25 16:29 Aspirin (Aspirin 81mg Ec Tab) 81 mg DAILY PO 12/22/24 09:00 01/21/25 08:59 Atorvastatin Calcium (LIPItor 40MG) 40 mg HS PO 12/21/24 21:00 01/20/25 20:59 Clopidogrel Bisulfate (plaVIX 75MG) 75 mg DAILY PO 12/22/24 09:00 01/21/25 08:59 Dextrose (D50w) 50 ml AD PRN IV HYPOGLYCEMIA PROTOCOL 12/21/24 16:30 01/20/25 16:29 Diphenhydramine HCl (BENAdryl INJ) 25 mg Q6H PRN IV SEVERE ITCHING/RASH 12/21/24 16:30 01/20/25 16:29 Famotidine (Pepcid 20mg Vial) 20 mg BID IV 12/21/24 21:00 01/20/25 20:59 Famotidine (Pepcid 20mg Vial) 20 mg BID PRN IV NAUSEA/VOMITING 12/21/24 16:30 01/20/25 16:29 Glucagon (Glucagon 1mg Kit) 1 mg AD PRN IM HYPOGLYCEMIA PROTOCOL 12/21/24 16:30 01/20/25 16:29 Guaifenesin/ Dextromethorphan (RobiTUSSin DM 200/20MG 10ML) 10 ml Q4H PRN PO COUGH 12/21/24 16:30 01/20/25 16:29 Heparin Sodium (Porcine) (HEParin 5,000 UNIT VIAL) 5,000 unit BID SQ 12/21/24 21:00 01/20/25 20:59 Hydralazine HCl (APRESOLine 20MG INJ) 10 mg Q6H PRN IV For:SBP above 160;DBP above 90 12/21/24 16:30 01/20/25 16:29 Insulin Human Regular (humuLIN R 100 UNIT/ML 3ML) INSULIN SLIDING SCAL... ACHS SQ 12/21/24 16:30 01/20/25 16:29 Ketorolac Tromethamine (toRADol) 15 mg Q8H PRN IV MODERATE PAIN (4-6) 12/21/24 16:30 12/26/24 16:29 Lactulose (Constulose 20gm/ 30ml Udcup) 20 gm BID PRN PO CONSTIPATION 12/21/24 16:30 01/20/25 16:29 Magnesium Sulfate 50 ml @ 0 mls/hr PROTOCOL PRN IV other 12/21/24 16:30 01/20/25 16:29 Morphine Sulfate (morPHINE 2MG SYG) 1 mg Q4H PRN IVP SEVERE PAIN (7-10) 12/21/24 16:30 12/28/24 16:29 Nitroglycerin (Nitrostat) 0.4 mg AD PRN SL CHEST PAIN 12/21/24 15:30 01/20/25 15:29 Nitroglycerin (Nitrostat) 0.4 mg PROTOCOL PRN SL CHEST PAIN 12/21/24 16:30 01/20/25 16:29 Ondansetron HCl (zoFRAN 4MG INJ) 4 mg Q6H PRN IV NAUSEA/VOMITING 12/21/24 16:30 01/20/25 16:29 Oxycodone/ Acetaminophen (perCOCET) 1 tab Q6H PRN PO SEVERE PAIN (7-10) 12/21/24 16:30 12/28/24 16:29 Potassium Chloride 100 ml @ 100 mls/hr AD PRN IV POTASSIUM PROTOCOL 12/21/24 16:30 01/20/25 16:29 Potassium Chloride (K-Dur/Klor-Con 20meq) 20 meq AD PRN PO POTASSIUM PROTOCOL 12/21/24 16:30 01/20/25 16:29 Potassium Chloride (KCl 10% Elixir 20meq/15ml) 20 meq AD PRN PO POTASSIUM PROTOCOL 12/21/24 16:30 01/20/25 16:29 Zolpidem Tartrate (AmbIEN) 5 mg HS PRN PO INSOMNIA 12/21/24 16:30 01/20/25 16:29 DIAGNOSTICS / RADIOLOGY: [ ] ASSESSMENT: [ ACUTE HYPOXIC RESPIRATORY FAILURE POA EMERGENCY HYPERTENSION POA ACUTE CHEST PRESSURE POA UNCONTROLLED DIABETES MELLITUS TYPE 2 WITH HYPOGLYCEMIA HYPERLIPIDEMIA POA OBSTRUCTIVE SLEEP APNEA ON CPAP POA FIBROMYALGIA POA COPD NOT EXACERBATION POA ASTHMA NOT EXACERBATION POA HISTORY OF GASTROENTERITIS RHEUMATOID ARTHRITIS POA MORBID OBESITY POA HISTORY OF TONSILLECTOMY HISTORY OF CHOLECYSTECTOMY HISTORY OF SKIN TAG/CYST REMOVAL ON BACK] PLAN: [ ADMIT TO: MEDICAL-SURGICAL WITH TELEMETRY 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 FALL PRECAUTIONS. WELL LIGHTED ROOM THROUGH THE DAY AND MINIMIZE INTERRUPTIONS THROUGH THE NIGHT TO PREVENT ACUTE DELIRIUM. PULMONARY: CHEST X-RAY CLEAR LUNGS SUPPLEMENTAL 02 NEEDED BIPAP NECESSARY, FOR RESPIRATORY DISTRESS TITRATE FIO2 TO KEEP SPO2 > OR = 90% DUONEBS AND CPT NEEDED IS HOURLY WHILE AWAKE FOR PULMONARY HYGIENE OUT OF BED TO CHAIR TOLERATED VAP BUNDLE MAINTAIN ASPIRATION PRECAUTIONS AT ALL TIMES CARDIOVASCULAR: 2D ECHO PENDING CARDIOLOGY CONSULTATION PENDING FOLLOW HEMODYNAMICS. VITAL SIGNS PER FACILITY PROTOCOL GI & NUTRITION: CONTINUE NUTRITIONAL SUPPORT ASPIRATIONS PRECAUTIONS PROKINETIC AGENTS AND LAXATIVES NEEDED KIDNEYS & ELECTROLYTES: STRICT MONITORING OF INTAKE AND OUTPUT DAILY WEIGHTS AVOID NEPHROTOXIC AGENTS MONITOR ELECTROLYTES AND REPLACE NEEDED GOAL URINE OUTPUT OF 30ML/HR OR 0.5ML/KG/HR MEDICATIONS TO BE DOSED ACCORDING TO RENAL FUNCTION. AVOID CONTRAST IF POSSIBLE ENDOCRINE: MAINTAIN BLOOD GLUCOSE BETWEEN 100-180 AT ALL TIMES. INSULIN SLIDING SCALE FOR BLOOD GLUCOSE MANAGEMENT HYPOGLYCEMIA AND HYPERGLYCEMIA PROTOCOL IN PLACE INFECTIOUS DISEASE: TREND TEMPERATURE, WBC AND PROCALCITONIN LEVEL FOLLOW CULTURES, DEESCALATE ANTIBIOTICS SOON POSSIBLE. PANCULTURE IF NEW ONSET FEVER HEMATOLOGY & COAGULATION: MONITOR H&H. KEEP HGB > 7 TRANSFUSE 1 UNIT OF PRBC FOR HGB < 7 TRANSFUSE 1 PACK OF PLATELETS OF PLATELETS < 20, 000 WATCH FOR ANY SIGNS AND SYMPTOMS OF BLEEDING SKIN: PRESSURE ULCER PREVENTION PER FACILITY PROTOCOL SPECIALTY MATTRESS NEEDED TREATMENT PLAN DISCUSSED WITH PATIENT AND FAMILY AT THE BEDSIDE MEDICATIONS TO BE RECONCILED ONCE OBTAINED BY PATIENT AND/OR FAMILY AND AVAILABLE TO BE RECONCILED IN COMPUTER P.R.N. MEDICATION FOR PAIN NAUSEA AND VOMITING QUESTIONS WERE ANSWERED WE WILL CONTINUE TO MONITOR THE PATIENT CLOSELY EMERGENCY MEDICINE PHYSICIAN ASSISTANT FOR DISPOSITION REHAB: PT/OT GI: PPI DVT: SCD'S CODE STATUS: FULL RESUSCITATION DISPOSITION: TBD PROGNOSIS: GUARDED] ADVANCED CARE PLANNING 1. Which of the following were discussed? Hospice Care - Yes / No Therapeutic options - Yes / No Advance Directives - Yes / No Other discussions - 2. Discussed with who? PT AND 3. Voluntary nature of this service was explained to the patient? Yes / No 4. Amount of time spent - ___MORE THAN 35 MIN____ 5. Reviewed by Physician? (if this service was performed by NPP) Yes / No ATTESTATION BY PHYSICIAN I have seen and examined the patient. I reviewed the documentation, medical decision making, and treatment plan as noted by the mid-level provider above. I agree with the findings and plan of care. YASMIN TRINIDAD MD [employer] December 21, 2024 18:14
[2024-12-21] MEDS: atorVAStatin 40 MG TABLET PO SCH (20:06)
[2024-12-21] MEDS: FAMOTIDINE 20MG VIAL IV SCH (20:06)
[2024-12-21] MEDS: morPHINE 2 MG SYG IVP PRN (20:07)
[2024-12-21] MEDS: HEParin 5,000 UNIT VIAL SQ SCH (20:07)
[2024-12-21 20:13] LABS: COVID19 (SARS ANTIGEN RAPID) PRESUMPTIVE NEGATIVE (NEGATIVE); INFLUENZA TYPE A Negative For Type A (NEGATIVE); INFLUENZA TYPE B Negative For Type B (NEGATIVE)
[2024-12-21] MEDS: hydrALAZine 20MG/ML VIAL IV PRN (21:21)
[2024-12-21 21:50] LABS: AMPHET/METH SCREEN,URINE NEGATIVE (NEGATIVE); BARBITURATE SCREEN, URINE NEGATIVE (NEGATIVE); BENZODIAZEPINES SCREEN,URINE NEGATIVE (NEGATIVE); CANNABINOID SCREEN,URINE NEGATIVE (NEGATIVE); COCAINE SCREEN,URINE NEGATIVE (NEGATIVE); OPIATE SCREEN,URINE NEGATIVE (NEGATIVE); PHENCYCLIDINE SCREEN,URINE NEGATIVE (NEGATIVE)
[2024-12-22] MEDS: acetaMINOPHEN 325 MG TAB PO PRN (01:05)
[2024-12-22 07:32] LABS: BASOPHILS # (AUTO) 0.03 K/uL (0.00-0.20); BASOPHILS % (AUTO) 0.5 % (0.0-5.0); EOSINOPHILS # (AUTO) 0.15 K/uL (0.00-0.70); EOSINOPHILS % (AUTO) 2.5 % (0.0-8.0); IMMATURE GRANULOCYTE ABSOLUTE 0.01 K/uL (0-1); LYMPHOCYTES # (AUTO) 2.3 K/uL (1.0-4.8); LYMPHOCYTES % (AUTO) 38.4 % (21.0-51.0); MEAN CORPUSCULAR HEMOGLOBIN 30.2 pg (27.0-33.0); MEAN CORPUSCULAR HGB CONC 33.9 g/dL (32.0-36.0); MEAN CORPUSCULAR VOLUME 88.9 fL (79-99); MONOCYTES # (AUTO) 0.6 K/uL (0.1-1.0); MONOCYTES % (AUTO) 9.8 % (3.0-13.0); NEUTROPHILS # (AUTO) 2.9 K/uL (1.8-7.7); NEUTROPHILS % (AUTO) 48.6 % (40.0-77.0); PLATELET COUNT (AUTO) 311 K/uL (130-400); RED BLOOD CELL COUNT(AUTO) 4.61 MIL/uL (4.00-5.50); RED CELL DISTRIBUTION WIDTH 12.6 % (11.0-15.5)
[2024-12-22 07:44] LABS: ALANINE AMINOTRANSFERASE 46 U/L (12-78); ALBUMIN 3.5 g/dL (3.5-5.0); AMMONIA < 10 umol/L (11-32); ASPARTATE AMINOTRANSFERASE 39 U/L (10-37); BILIRUBIN,DIRECT 0.1 mg/dL (0.0-0.3); BILIRUBIN,TOTAL 0.4 mg/dL (0.2-1.0); CARBON DIOXIDE 23 mmol/L (21-32); CHLORIDE 103 mmol/L (101-111); CREATINE KINASE, TOTAL 31 U/L (21-232); CREATININE 0.8 mg/dL (0.5-1.0); GLOMERULAR FILTR. RATE CALC 90 mL/min (>90); GLUCOSE,RANDOM 203 mg/dL (70-105); POTASSIUM 4.1 mmol/L (3.5-5.1); SODIUM SERUM 140 mmol/L (136-145); TOTAL PROTEIN, SERUM 6.9 g/dL (6.0-8.3); UREA NITROGEN, BLOOD 16 mg/dL (7-18)
[2024-12-22] MEDS: ASPIRIN 81 MG EC TAB PO SCH (09:23)
[2024-12-22] MEDS: cloPIDOgrel 75MG TAB PO SCH (09:24)
--- NOTE | 2024-12-22 10:25 | CONS ---
[facility] CARDIOLOGY CONSULTATION NOTE Date Patient Seen: December 22, 2024 Time of Visit: 10:19 Reason for Consultation: [chest pain ] History of Present Illness: [ Patient is a 49 yo F with PMH SANA, HTN who presents with chest pain. She was with her dad at the stress test imaging center and while sitting in the chair waiting for him, she developed 10/10 chest pressure and was associated with shortness of breath. She last saw Dr Baxter in 06/2024. She had sinus tachycardia on Holter. She had normal stress test in 2021. Trop negative. ECG no acute ST-T changes. ] PAST MEDICAL HISTORY: [DIABETES, HYPERTENSION, HYPERLIPIDEMIA, OBSTRUCTIVE SLEEP APNEA ON CPAP, FIBROMYALGIA, COPD, ASTHMA, RHEUMATOID ARTHRITIS, GASTROENTERITIS ] PAST SURGICAL HISTORY: [ TONSILLECTOMY, CHOLECYSTECTOMY, CYST ON BACK THAT WAS REMOVED] PAST SOCIAL HISTORY: [ PATIENT DRINKS OCCASIONALLY. PATIENT DENIES ANY DRUG ILLICIT. PATIENT DENIES SMOKING ] FAMILY HISTORY: [ PATIENT LIVES AT HOME WITH HER CHILD. PATIENT IS INDEPENDENT. ] Home Meds: [ ] Current Meds: [ ] Review of Systems: CONST: [No fever, fatigue, or weight changes.] EYES: [No recent vision problems.] ENT: [No congestion, ear pain, or sore throat.] C/V: [+ chest pain, No palpitations, or edema.] RESP: [No cough, congestion, wheezing or shortness of breath.] GI: [No abdominal pain, nausea, vomiting, constipation, or diarrhea.] : [No incontinence or dysuria.] SKIN: [No rash.] NEURO: [No headache, focal numbness or weakness, dizziness, or seizures.] PSYCH: [No depression or anxiety.] HEME: [No abnormal bruising or bleeding.] LYMPH: [No swollen glands.] Physical Examination: GENERAL: [No acute distress.] HEAD: [Normal with no signs of head trauma.] EYES: [PERRLA, EOMI, conjunctiva and sclera normal.] ENT: [Hearing grossly intact, normal oropharynx.] NECK: [Supple without JVD. There is no tenderness, lymphadenopathy, or masses. No thyromegaly. Normal carotid upstrokes without bruits.] LUNGS: [Clear breath sounds bilaterally. There are right basilar rales one third of the way up the chest. No wheezes, or rhonchi.] HEART: [Normal rate and rhythm. Normal S1 and S2 without mumurs, gallop or rub.] VASC: [Peripheral pulses +2 bilaterally.] ABD: [Bowel sounds normal, soft, nontender, no masses, no organomegaly. No audible bruits.] : [Not examined] LYMPH: [No lymphadenopathy noted.] EXT: [No clubbing, cyanosis or edema.] SKIN: [No rashes or lesions noted.] NEURO: [Awake, alert, and oriented x3. No focal sensory or strength deficits noted.] Vital Signs (last 8hr) Date Time Temp Pulse Resp B/P (MAP) Pulse Ox O2 Delivery O2 Flow Rate FiO2 12/22/24 09:30 98.2 85 14 160/81 100 Room Air* 0 21 12/22/24 04:00 98.2 85 14 132/75 100 Room Air* 0 21 Laboratory: [ ] Hematology Labs: Test 12/22/24 07:22 Range/Units White Blood Count 6.0 4.8-10.8 K/uL Red Blood Count 4.61 4.00-5.50 MIL/uL Hemoglobin 13.9 12.0-16.0 g/dL Hematocrit 41.0 36-48 % Mean Corpuscular Volume 88.9 79-99 fL Mean Corpuscular Hemoglobin 30.2 27.0-33.0 pg Mean Corpuscular Hemoglobin Concent 33.9 32.0-36.0 g/dL Red Cell Distribution Width 12.6 11.0-15.5 % Platelet Count 311 130-400 K/uL Mean Platelet Volume 9.1 7.5-10.5 fL Immature Granulocyte % (Auto) 0.2 0-1 % Neutrophils (%) (Auto) 48.6 40.0-77.0 % Lymphocytes (%) (Auto) 38.4 21.0-51.0 % Monocytes (%) (Auto) 9.8 3.0-13.0 % Eosinophils (%) (Auto) 2.5 0.0-8.0 % Basophils (%) (Auto) 0.5 0.0-5.0 % Neutrophils # (Auto) 2.9 1.8-7.7 K/uL Lymphocytes # (Auto) 2.3 1.0-4.8 K/uL Monocytes # (Auto) 0.6 0.1-1.0 K/uL Eosinophils # (Auto) 0.15 0.00-0.70 K/uL Basophils # (Auto) 0.03 0.00-0.20 K/uL Absolute Immature Granulocyte (auto 0.01 0-1 K/uL Nucleated Red Blood Cells 0.0 0.0-0.19 % Chemistry Labs: Test 12/22/24 09:27 12/22/24 07:22 12/21/24 13:33 Range/Units Whole Blood Glucose 241 #H 70-110 MG/DL Sodium Level 140 136-145 mmol/L Potassium Level 4.1 3.5-5.1 mmol/L Chloride Level 103 101-111 mmol/L Carbon Dioxide Level 23 21-32 mmol/L Blood Urea Nitrogen 16 7-18 mg/dL Creatinine 0.8 0.5-1.0 mg/dL Glomerular Filtration Rate Calc 90 >90 mL/min Random Glucose 203 H 70-105 mg/dL Hemoglobin A1c 8.0 H 4.0-6.0 % Estimated Average Glucose (eAG) 183 H 70-126 mg/dL Lactic Acid Level 1.5 0.8-2.5 mmol/L Total Calcium 8.4 L 8.5-10.1 mg/dL Magnesium Level 2.00 1.80-2.40 mg/dL Total Bilirubin 0.4 0.2-1.0 mg/dL Direct Bilirubin 0.1 0.0-0.3 mg/dL Aspartate Amino Transf (AST/SGOT) 39 H 10-37 U/L Alanine Aminotransferase (ALT/SGPT) 46 12-78 U/L Alkaline Phosphatase 86 50-136 U/L Ammonia < 10 L 11-32 umol/L Total Creatine Kinase 31 # 21-232 U/L B-Type Natriuretic Peptide 12 0-100 pg/mL Total Protein 6.9 6.0-8.3 g/dL Albumin 3.5 3.5-5.0 g/dL Lipase 56 16-77 U/L Procalcitonin < 0.05 L 0.05-0.5 ng/mL Troponin I High Sensitivity 8 4-50 ng/L Diagnostics / Radiology: [Copy/Paste Echos/Imaging Report here] Assessment: [ Chest pain rule out htn sana] Plan: [#chest pain -Trop neg, bnp neg -ECG no ST-T changes -Echo is normal -CCTA ordered #HTN -started metoprolol succ 50 mg qd -she also takes olmesartan 40 mg qd at home -allergy to lisinopril, amlodipine and labetalol Thank you for this consult Maribel Tracy MD ] MARIBEL TRACY MD December 22, 2024 10:25
--- NOTE | 2024-12-22 10:25 | HMCSR ---
APPROVED REPORT EXAM: Two-dimensional and M-mode echocardiogram with Doppler and color Doppler. INDICATION ICD: Congestive heart failure 2D Dimensions RVDd3.6 cmLVEF(%)54.3 (>50%)LVED Vol(simp.)50.0 mL IVSd1.2 (0.7-1.1cm)FS(%)28 %LVES Vol(simp.)19.0 mL LVDd3.9 (3.8-5.6cm)LA (2D)3.6 (1.6-4.0cm)LVEF(%, simp.)63 % PWd0.9 (0.7-1.1cm)Ao Root(2D)2.7 (2.0-3.7cm)LA ESV INDEX (BP)24.16 mL/m2 IVSs1.2 cmLVOT diam2.0 (1.8-2.4cm) LVDs2.8 (2.5-4.0cm)IVC diam1.7 cm PWs1.4 cm Deformation Strain Apical 4-15.9 % Apical 2-18.2 % Apical 3-20.1 % Global Strain-18.1 % M-Mode Dimensions EPSS0.4 cm LA (MM)4.0 (1.6-4.0cm) Ao Root(MM)3.0 (2.0-3.7cm) Aortic Valve AoV Vmax1.3 m/Amber Peak GR6.8 mmHgLVOT Vmax1.1 m/s AoV VTI0.2 mAo Mean GR3.5 mmHgLVOT VTI0.23 m ARSENIO (VMAX)2.69 cm2AVA (VTI) 3.2 cm2 Mitral Valve MV E Vmax83.1 cm/sDECEL Wglm054 ms MV A Vmax76.7 cm/sP 1/2 T58 ms E/A ratio1.1MVA (PHT)3.8 cm2 TDI E/E' Wahzog18.9E/E' Aigquku53.0 Medial E' Peak V6.45 cm/sLateral E' Peak V8.27 cm/s Pulmonary Valve PV Vmax0.9 m/sPV VTI0.20 mPV Mean GR1.8 mmHg PV Peak GR2.9 mmHg Left Ventricle The left ventricle is normal size. There is mild left ventricular wall thickness. LVEF is 60-65%. The left ventricular diastolic function is normal. Right Ventricle The right ventricle is normal size. The right ventricular systolic function is normal. Atria The left atrium size is normal. The right atrium size is normal. Aortic Valve The aortic valve is trileaflet normal in structure. No aortic regurgitation is present. There is no a ortic valvular stenosis. Mitral Valve The mitral valve is normal in structure. There is no mitral valve regurgitation noted. There is no mi tral valve stenosis. Tricuspid Valve The tricuspid valve is normal in structure. There is trace of tricuspid valve regurgitation noted. Pulmonic Valve The pulmonary valve is normal in structure. There is no pulmonic valvular regurgitation. Great Vessels The aortic root is normal in size. The IVC is normal in size and collapses >50% with inspiration. Pericardium There is no pericardial effusion. Other Information Quality : Adequate Conclusion The left ventricle is normal size. There is mild left ventricular wall thickness. LVEF is 60-65%. The left ventricular diastolic function is normal. The right ventricle is normal size. The right ventricular systolic function is normal. The left atrium size is normal. The right atrium size is normal. No valvular pathology. There is no pericardial effusion.
[2024-12-22] MEDS ORDERED: metoPROLOL tartRATE 25 MG TAB PO SCH (10:30)
--- NOTE | 2024-12-22 10:45 | NUR ---
DR. RIOJAS AT BEDSIDE
[2024-12-22] MEDS: metOPROLol sucCINATE 50 MG TAB.SR.24H PO ONE ×2 (10:48→10:49)
--- NOTE | 2024-12-22 13:14 | NUR ---
PT STATES SHE WILL CALL DR ROACH OFFICE TO FAX HER MEDICATION LIST.
--- NOTE | 2024-12-22 13:15 | NUR ---
PT TAKEN TO RAD DEPT BY FABI MARTÍNEZ FOR CT ANGIO, I WILL CALL REPORT TO RUSSELL NURSE, CALLED 15 MINUTES PRIOR STATED SHE WAS BUSY WOULD CALL ME BACK , MATT MARTÍNEZ WILL TAKE PT TO HER ROOM 413 WITH PERSONAL BELONGINGS AFTER ANGIO.
[2024-12-22] MEDS ORDERED: IOHEXOL 350 MG/ML 100ML INFUS..BTL IV ONE (13:22)
[2024-12-22] MEDS ORDERED: metoPROLOL tartRATE 1 MG/ML 5ML VIAL IV ONE (13:28)
[2024-12-22 13:50] VITALS: BP 149/97; PULSE 80; RESP 18; TEMP 98.6
[2024-12-22 14:16] VITALS: O2SAT 96
--- NOTE | 2024-12-22 14:21 | PN ---
[facility] PROGRESS NOTE Date of Service: December 22, 2024 Time of Service: 14:16 Attending doctor Leela SUBJECTIVE: [[ 12/21/24 PATIENT IS 49 YEARS OLD FEMALE WITH A PAST MEDICAL HISTORY OF DIABETES, HYPERTENSION, HYPERLIPIDEMIA, OBSTRUCTIVE SLEEP APNEA ON CPAP, COPD, ASTHMA, TONSILLECTOMY, CHOLECYSTECTOMY, WHO CAME TO EMERGENCY DEPARTMENT WITH A COMPLAINT OF CHEST PRESSURE. PATIENT STILL DID THAT THE SYMPTOMS BEGAN ABOUT 10:30 A.M. WHEN SHE WAS SITTING. PATIENT DENIES EATING OR DRINKING ANYTHING HOT OCCULT AT THAT MOMENT. PATIENT STATED THAT IT FELT LIKE SOMETHING IS SITTING ON HER CHEST AND SQUEEZING HER. PATIENT DENIES ANY RADIATION OF THE PAIN. PATIENT STATED THAT SHE FEELS A PRESSURE 8/10 ESPECIALLY WHEN SHE BREATHES IN WHEN SHE BREATHS OUT THE PRESSURE GOES AWAY. SHE HAS A PATIENT OF DR. RAJPUT FROM [facility]. HER NEXT APPOINTMENT IS DECEMBER 29, 2024 MOST RECENT VITAL SIGNS TEMPERATURE 97.9 PULSE 75 RESPIRATIONS 16 BLOOD PRESSURE 171/96, PATIENT IS ON ROOM AIR SATTING 98%. WBC 6.9 HEMOGLOBIN 14.2 HEMATOCRIT 42.3 PLATELETS 318 SODIUM 141 POTASSIUM 3.7 CO2 26 BUN 14 CREATININE 0.8 GFR 90 RANDOM GLUCOSE 170 TROPONIN NEGATIVE X2 BNP 7 URINALYSIS NEGATIVE. CHEST X-RAY CLEAR LUNGS. 2D ECHO PENDING PATIENT WILL BE ADMITTED UNDER HOSPITALIST CARE FOR FURTHER EVALUATION/RECOMMENDATION. A.M. LABS. 12/22/24 patient was seen by nurse practitioner and physician during rounding in room ER five. Family members/ at the bedside. Patient continues to complain of chest pain. Chest x-ray showed clear lungs. As per oceanographic meteorologist patient is saw her oceanographic meteorologist Dr. Rajput in 06/2024. Back then she was sinus tachycardia on Holter. She also had a normal stress test in 2021. EKG no acute ST-T changes. 2D echo normal. As per oceanographic meteorologist patient will undergo chest CTA. Patient was started on metoprolol succinate 50 mg daily continue olmesartan 40 mg daily. Further evaluation based on a radiology results. All the labs and results were evaluated and explained to the patient and family at the bedside. We will continue to monitor patient in the meantime. A.m. labs] REVIEW OF SYSTEMS CONSTITUTIONAL: Denies fevers, chills, or night sweats. No unintentional weight loss reported. NEUROLOGICAL: Denies headache, amaurosis fugax, motor weakness, sensory deficit, vertigo/spinning sensation, gait abnormalities, or tremors. ENT: No hearing loss, otalgia, otorrhea, rhinitis, rhinorrhea, hoarseness, or sore throat. CARDIOVASCULAR: Denies any dyspnea on exertion, orthopnea, paroxysmal nocturnal dyspnea, palpitations, life-threatening arrhythmias, claudication. COMPLAINS OF CHEST PRESSURE PULMONARY: Denies any shortness of breath, cough, phlegm/sputum, hemoptysis, pleuritic chest pain. SLEEP: Denies morning headaches, daytime somnolence or napping. Denies difficulty falling asleep, staying asleep, waking from sleep. Denies knowledge of snoring. GASTROINTESTINAL: Denies any type of dysphagia to either liquids or solids. Denies nausea, vomiting, pyrosis, early satiety, abdominal pain, diarrhea, constipation, or changes in stool consistency or caliber. Denies coffee-ground emesis, hematemesis, hematochezia, or melanotic stools. GENITOURINARY: Denies frequency, urgency, nocturia, hematuria or incontinence (Storage/Irritative symptoms.) Low urinary stream, straining to void, urinary intermittency or hesitancy, splitting of the voiding stream, terminal dribbling. ENDOCRINOLOGIC: Denies polyuria, polydipsia, polyphagia or heat/cold intolerances. HEMATOLOGIC: Denies thrombophilia/previous clots, or coagulopathy/bleeding disorders. ONCOLOGIC: Denies personal history of malignancy. DERMATOLOGIC: Denies rashes or pruritus. PSYCHIATRIC: Denies any suicidal or homicidal ideation. Denies hallucinations. PHYSICAL EXAM GENERAL APPEARANCE: The patient is awake, alert, and oriented, in no acute cardiopulmonary distress. NEUROLOGICAL: Cranial nerves II-XII grossly intact. Motor is 5/5 in bilateral upper and lower extremities proximal to distal. No sensory deficits. HEENT: Face is symmetric. Pupils are equal and reactive. Extraocular movements are intact. NECK: Supple. No JVD. No thyromegaly. No submental, submandibular, pre- /postauricular, occipital or supraclavicular lymphadenopathy. CHEST: Normal chest expansion. No Telemetry. LUNGS: Absence of any rales, rhonchi or any wheezing. CARDIOVASCULAR: Regular. S1 and S2 normal. No appreciable rubs, murmurs or gallops. ABDOMEN: Soft, nontender, and nondistended. There is no rebound, voluntary guarding, or rigidity. : Deferred. No Gray. EXTREMITIES: Non-edematous and not cyanotic. No clubbing. Good capillary refill. SKIN: No skin breakdown. Vital Signs (last 8hr) Date Time Temp Pulse Resp B/P (MAP) Pulse Ox O2 Delivery O2 Flow Rate FiO2 12/22/24 13:08 97.9 72 18 155/92 96 Room Air* 0 21 12/22/24 11:30 98.2 72 16 152/90 100 Room Air* 0 21 12/22/24 09:30 98.2 85 14 160/81 100 Room Air* 0 21 LABS: Laboratory: Test 12/22/24 11:27 12/22/24 07:22 12/21/24 19:27 12/21/24 13:33 Range/Units Whole Blood Glucose 270 H 70-110 MG/DL White Blood Count 6.0 4.8-10.8 K/uL Red Blood Count 4.61 4.00-5.50 MIL/uL Hemoglobin 13.9 12.0-16.0 g/dL Hematocrit 41.0 36-48 % Mean Corpuscular Volume 88.9 79-99 fL Mean Corpuscular Hemoglobin 30.2 27.0-33.0 pg Mean Corpuscular Hemoglobin Concent 33.9 32.0-36.0 g/dL Red Cell Distribution Width 12.6 11.0-15.5 % Platelet Count 311 130-400 K/uL Mean Platelet Volume 9.1 7.5-10.5 fL Immature Granulocyte % (Auto) 0.2 0-1 % Neutrophils (%) (Auto) 48.6 40.0-77.0 % Lymphocytes (%) (Auto) 38.4 21.0-51.0 % Monocytes (%) (Auto) 9.8 3.0-13.0 % Eosinophils (%) (Auto) 2.5 0.0-8.0 % Basophils (%) (Auto) 0.5 0.0-5.0 % Neutrophils # (Auto) 2.9 1.8-7.7 K/uL Lymphocytes # (Auto) 2.3 1.0-4.8 K/uL Monocytes # (Auto) 0.6 0.1-1.0 K/uL Eosinophils # (Auto) 0.15 0.00-0.70 K/uL Basophils # (Auto) 0.03 0.00-0.20 K/uL Absolute Immature Granulocyte (auto 0.01 0-1 K/uL Nucleated Red Blood Cells 0.0 0.0-0.19 % Sodium Level 140 136-145 mmol/L Potassium Level 4.1 3.5-5.1 mmol/L Chloride Level 103 101-111 mmol/L Carbon Dioxide Level 23 21-32 mmol/L Blood Urea Nitrogen 16 7-18 mg/dL Creatinine 0.8 0.5-1.0 mg/dL Glomerular Filtration Rate Calc 90 >90 mL/min Random Glucose 203 H 70-105 mg/dL Hemoglobin A1c 8.0 H 4.0-6.0 % Estimated Average Glucose (eAG) 183 H 70-126 mg/dL Lactic Acid Level 1.5 0.8-2.5 mmol/L Total Calcium 8.4 L 8.5-10.1 mg/dL Magnesium Level 2.00 1.80-2.40 mg/dL Total Bilirubin 0.4 0.2-1.0 mg/dL Direct Bilirubin 0.1 0.0-0.3 mg/dL Aspartate Amino Transf (AST/SGOT) 39 H 10-37 U/L Alanine Aminotransferase (ALT/SGPT) 46 12-78 U/L Alkaline Phosphatase 86 50-136 U/L Ammonia < 10 L 11-32 umol/L Total Creatine Kinase 31 # 21-232 U/L B-Type Natriuretic Peptide 12 0-100 pg/mL Total Protein 6.9 6.0-8.3 g/dL Albumin 3.5 3.5-5.0 g/dL Lipase 56 16-77 U/L Procalcitonin < 0.05 L 0.05-0.5 ng/mL Influenza Type A Antigen Negative For Type A NEGATIVE Influenza Type B Antigen Negative For Type B NEGATIVE SARS-CoV-2 Antigen (Rapid) PRESUMPTIVE NEGATIVE NEGATIVE Troponin I High Sensitivity 8 4-50 ng/L Test 12/21/24 11:29 Range/Units Urine Color YELLOW YELLOW Urine Appearance CLOUDY H CLEAR Urine pH 5.0 5.0-8.0 Urine Specific [place] 1.028 1.001-1.031 Urine Protein NEGATIVE NEGATIVE mg/dL Urine Glucose (UA) 30 H NEGATIVE mg/dL Urine Ketones 5 H NEGATIVE mg/dL Urine Occult Blood NEGATIVE NEGATIVE Urine Nitrate NEGATIVE NEGATIVE Urine Bilirubin NEGATIVE NEGATIVE mg/dL Urine Urobilinogen 0.2 0.2-1.0 mg/dL Urine Leukocyte Esterase NEGATIVE NEGATIVE Cameron/uL Urine RBC 2-5 H 0-1 /HPF Urine WBC 2-5 H 0-1 /HPF Urine WBC Clumps (Auto) 0-1 /HPF Urine Squamous Epithelial Cells Rare 0-2 /HPF Urine Bacteria Rare None Seen /HPF Urine Opiates Screen NEGATIVE NEGATIVE Urine Barbiturates Screen NEGATIVE NEGATIVE Urine Phencyclidine Screen NEGATIVE NEGATIVE Urine Amphetamines Screen NEGATIVE NEGATIVE Urine Benzodiazepines Screen NEGATIVE NEGATIVE Urine Cocaine Screen NEGATIVE NEGATIVE Urine Marijuana (THC) Screen NEGATIVE NEGATIVE Current Medications Medications (Trade) Dose Ordered Sig/Shon Route PRN Reason Start Time Stop Time Status Last Admin Dose Admin Acetaminophen (TYLenol 325MG TAB) 650 mg Q4H PRN PO MILD PAIN (1-3) 12/21/24 16:30 01/20/25 16:29 12/22/24 10:49 650 MG Acetaminophen (TYLenol 325MG TAB) 650 mg Q6H PRN PO MILD PAIN (1-3) 12/21/24 16:30 01/20/25 16:29 Acetaminophen (TYLenol 325MG TAB) 650 mg Q6H PRN PO TEMPERATURE GREATER THAN 101.5 12/21/24 16:30 01/20/25 16:29 Al Hydroxide/Mg Hydroxide (MAALox PLUS 30ML) 30 ml Q6H PRN PO INDIGESTION 12/21/24 16:30 01/20/25 16:29 Aspirin (Aspirin 81mg Ec Tab) 81 mg DAILY PO 12/22/24 09:00 01/21/25 08:59 12/22/24 09:23 81 MG Atorvastatin Calcium (LIPItor 40MG) 40 mg HS PO 12/21/24 21:00 01/20/25 20:59 12/21/24 20:06 40 MG Clopidogrel Bisulfate (plaVIX 75MG) 75 mg DAILY PO 12/22/24 09:00 01/21/25 08:59 12/22/24 09:24 75 MG Dextrose (D50w) 50 ml AD PRN IV HYPOGLYCEMIA PROTOCOL 12/21/24 16:30 01/20/25 16:29 Diphenhydramine HCl (BENAdryl INJ) 25 mg Q6H PRN IV SEVERE ITCHING/RASH 12/21/24 16:30 01/20/25 16:29 Famotidine (Pepcid 20mg Vial) 20 mg BID IV 12/21/24 21:00 01/20/25 20:59 12/22/24 09:25 20 MG Famotidine (Pepcid 20mg Vial) 20 mg BID PRN IV NAUSEA/VOMITING 12/21/24 16:30 01/20/25 16:29 Glucagon (Glucagon 1mg Kit) 1 mg AD PRN IM HYPOGLYCEMIA PROTOCOL 12/21/24 16:30 01/20/25 16:29 Guaifenesin/ Dextromethorphan (RobiTUSSin DM 200/20MG 10ML) 10 ml Q4H PRN PO COUGH 12/21/24 16:30 01/20/25 16:29 Heparin Sodium (Porcine) (HEParin 5,000 UNIT VIAL) 5,000 unit BID SQ 12/21/24 21:00 01/20/25 20:59 12/22/24 09:25 5,000 UNIT Hydralazine HCl (APRESOLine 20MG INJ) 10 mg Q6H PRN IV For:SBP above 160;DBP above 90 12/21/24 16:30 01/20/25 16:29 12/21/24 21:21 10 MG Insulin Human Regular (humuLIN R 100 UNIT/ML 3ML) INSULIN SLIDING SCAL... ACHS SQ 12/21/24 16:30 01/20/25 16:29 12/22/24 11:30 5 UNIT Ketorolac Tromethamine (toRADol) 15 mg Q8H PRN IV MODERATE PAIN (4-6) 12/21/24 16:30 12/26/24 16:29 Lactulose (Constulose 20gm/ 30ml Udcup) 20 gm BID PRN PO CONSTIPATION 12/21/24 16:30 01/20/25 16:29 Magnesium Sulfate 50 ml @ 0 mls/hr PROTOCOL PRN IV other 12/21/24 16:30 01/20/25 16:29 Metoprolol Tartrate (loprESSOR) 25 mg BID PO 12/22/24 10:30 12/22/24 10:45 DC Morphine Sulfate (morPHINE 2MG SYG) 1 mg Q4H PRN IVP SEVERE PAIN (7-10) 12/21/24 16:30 12/28/24 16:29 12/22/24 02:38 1 MG Nitroglycerin (Nitrostat) 0.4 mg AD PRN SL CHEST PAIN 12/21/24 15:30 12/22/24 10:26 DC Nitroglycerin (Nitrostat) 0.4 mg PROTOCOL PRN SL CHEST PAIN 12/21/24 16:30 01/20/25 16:29 Ondansetron HCl (zoFRAN 4MG INJ) 4 mg Q6H PRN IV NAUSEA/VOMITING 12/21/24 16:30 01/20/25 16:29 Oxycodone/ Acetaminophen (perCOCET) 1 tab Q6H PRN PO SEVERE PAIN (7-10) 12/21/24 16:30 12/28/24 16:29 Potassium Chloride 100 ml @ 100 mls/hr AD PRN IV POTASSIUM PROTOCOL 12/21/24 16:30 01/20/25 16:29 Potassium Chloride (K-Dur/Klor-Con 20meq) 20 meq AD PRN PO POTASSIUM PROTOCOL 12/21/24 16:30 01/20/25 16:29 Potassium Chloride (KCl 10% Elixir 20meq/15ml) 20 meq AD PRN PO POTASSIUM PROTOCOL 12/21/24 16:30 01/20/25 16:29 Zolpidem Tartrate (AmbIEN) 5 mg HS PRN PO INSOMNIA 12/21/24 16:30 01/20/25 16:29 DIAGNOSTICS / RADIOLOGY: [ ] ASSESSMENT: [ ACUTE HYPOXIC RESPIRATORY FAILURE POA EMERGENCY HYPERTENSION POA ACUTE CHEST PRESSURE POA UNCONTROLLED DIABETES MELLITUS TYPE 2 WITH HYPOGLYCEMIA HYPERLIPIDEMIA POA OBSTRUCTIVE SLEEP APNEA ON CPAP POA FIBROMYALGIA POA COPD NOT EXACERBATION POA ASTHMA NOT EXACERBATION POA HISTORY OF GASTROENTERITIS RHEUMATOID ARTHRITIS POA MORBID OBESITY POA HISTORY OF TONSILLECTOMY HISTORY OF CHOLECYSTECTOMY HISTORY OF SKIN TAG/CYST REMOVAL ON BACK] PLAN: [ ADMIT TO: MEDICAL-SURGICAL WITH TELEMETRY CONSULTS: ANALYST MICROBIOLOGY LAB ANTIBIOTICS: NONE TESTS: Chest CTA NEURO: MINIMIZE CENTRAL ACTING MEDICATIONS POSSIBLE. FALL PRECAUTIONS. WELL LIGHTED ROOM THROUGH THE DAY AND MINIMIZE INTERRUPTIONS THROUGH THE NIGHT TO PREVENT ACUTE DELIRIUM. PULMONARY: CHEST X-RAY CLEAR LUNGS SUPPLEMENTAL 02 NEEDED BIPAP NECESSARY, FOR RESPIRATORY DISTRESS TITRATE FIO2 TO KEEP SPO2 > OR = 90% DUONEBS AND CPT NEEDED IS HOURLY WHILE AWAKE FOR PULMONARY HYGIENE OUT OF BED TO CHAIR TOLERATED VAP BUNDLE MAINTAIN ASPIRATION PRECAUTIONS AT ALL TIMES CARDIOVASCULAR: 2D ECHO normal As per oceanographic meteorologist chest CTA ordered. Pending CTA chest FOLLOW HEMODYNAMICS. VITAL SIGNS PER FACILITY PROTOCOL GI & NUTRITION: CONTINUE NUTRITIONAL SUPPORT ASPIRATIONS PRECAUTIONS PROKINETIC AGENTS AND LAXATIVES NEEDED KIDNEYS & ELECTROLYTES: STRICT MONITORING OF INTAKE AND OUTPUT DAILY WEIGHTS AVOID NEPHROTOXIC AGENTS MONITOR ELECTROLYTES AND REPLACE NEEDED GOAL URINE OUTPUT OF 30ML/HR OR 0.5ML/KG/HR MEDICATIONS TO BE DOSED ACCORDING TO RENAL FUNCTION. AVOID CONTRAST IF POSSIBLE ENDOCRINE: MAINTAIN BLOOD GLUCOSE BETWEEN 100-180 AT ALL TIMES. INSULIN SLIDING SCALE FOR BLOOD GLUCOSE MANAGEMENT HYPOGLYCEMIA AND HYPERGLYCEMIA PROTOCOL IN PLACE INFECTIOUS DISEASE: TREND TEMPERATURE, WBC AND PROCALCITONIN LEVEL FOLLOW CULTURES, DEESCALATE ANTIBIOTICS SOON POSSIBLE. PANCULTURE IF NEW ONSET FEVER HEMATOLOGY & COAGULATION: MONITOR H&H. KEEP HGB > 7 TRANSFUSE 1 UNIT OF PRBC FOR HGB < 7 TRANSFUSE 1 PACK OF PLATELETS OF PLATELETS < 20, 000 WATCH FOR ANY SIGNS AND SYMPTOMS OF BLEEDING SKIN: PRESSURE ULCER PREVENTION PER FACILITY PROTOCOL SPECIALTY MATTRESS NEEDED TREATMENT PLAN DISCUSSED WITH PATIENT AND FAMILY AT THE BEDSIDE MEDICATIONS TO BE RECONCILED ONCE OBTAINED BY PATIENT AND/OR FAMILY AND AVAILABLE TO BE RECONCILED IN COMPUTER P.R.N. MEDICATION FOR PAIN NAUSEA AND VOMITING QUESTIONS WERE ANSWERED WE WILL CONTINUE TO MONITOR THE PATIENT CLOSELY CODE STATUS: FULL RESUSCITATION DISPOSITION: Home ] ATTESTATION BY PHYSICIAN I have seen and examined the patient. I reviewed the documentation, medical decision making, and treatment plan as noted by the mid-level provider above. I agree with the findings and plan of care. YASMIN Tillman MD FISCAL ECONOMIST December 22, 2024 14:21
--- NOTE | 2024-12-22 14:53 | NUR ---
DCP: HOME SW met with pt who lives in her sister's home with her 16yro daughter. Pt on SSI for Fibromyalgia, food stamp assistance. Pt has provider 4.5hrs a day thru [facility] [employer]. They assist with ADLS, home management and meal prep. Pt drives. Pt has shower chair, cane and walker. Pt on [employer] [facility] thru insurance that would send PA to do home visits. CP is José Miguel Wayne and uses [facility] for rx needs. [place]. Father of daughter Ellen Newton [phone] and mother Sammie Pak [phone]. Addendum: 12/22/24 at 1500 by YUNIOR SCOTT Amended: Links added.
--- NOTE | 2024-12-22 15:00 | HMCIMG ---
CT OF THE CHEST WITH CONTRAST- CT Cardiac Angio co-interpretation This is done as part of the CT cardiac angiogram study. The interpretation of the coronary arteries will be done by yard supervisor cotton gin in a separate report. History: over-read Comparison: none CT Dose Index (CTDI): 77.90 mGy Dose Length Product (DLP): 493.40 total mGy PROTOCOL: Examination is done at 2.5 millimeter volumetric acquisition after contrast administration with Isovue 370, 100 cc IV, without complications. Photography is done at 5 millimeter thick intervals for the thorax. The examination begins above the heart and therefore the lung apices are incompletely included. The rest of the left lung is included but the right lung is only included up to its middle third. The periphery of the right lung is not included in the study. FINDINGS: The visualized part of the airway is preserved. The bony and soft tissue structures of the chest wall are unremarkable. The aorta is unremarkable. No mediastinal lymphadenopathy is seen. The lung windows demonstrate no worrisome pulmonary nodules, masses or infiltrates. There is no evidence of pulmonary embolism in the visualized lung segments. The upper abdominal views are unremarkable. Impression: No significant abnormalities identified.
[2024-12-22 16:00] VITALS: BP 157/90; PULSE 73; RESP 18; TEMP 98.1
[2024-12-22] MEDS ORDERED: FAMO40TA7 PO (17:57)
[2024-12-22] MEDS ORDERED: ESOM40CA66 PO (17:57)
[2024-12-22] MEDS ORDERED: LINA145C PO (18:04)
[2024-12-22] MEDS ORDERED: SEMA1PEN3 SQ (18:12)
[2024-12-22] MEDS ORDERED: GLIM4TAB36 PO (18:12)
[2024-12-22] MEDS ORDERED: LEVO5TAB13 PO (18:12)
[2024-12-22] MEDS ORDERED: EZET-86 PO (18:12)
[2024-12-22] MEDS ORDERED: METF-527 PO (18:12)
[2024-12-22] MEDS ORDERED: MELO-106 PO (18:12)
[2024-12-22] MEDS ORDERED: AMIT10TA6 PO (18:12)
--- NOTE | 2024-12-22 18:23 | CARDIOLOGY ---
RAD REPORT: CORNARY CT ANGIO RADIOLOGY REPORT: CORONARY CT ANGIOGRAPHY DATE: December 22, 2024 QUALITY: Excellent CLINICAL HISTORY AND INDICATION: [ chest pain ] TECHNIQUE: After obtaining a preliminary welder fitter helper image, contrast imaging performed on an [employer]illon [id number] scanner. A dedicated, limited window, coronary imaging protocol was used, with single breath-hold, retrospective ECG gating, and automated arrhythmia rejection. 100 cc of low osmolar contrast agent: Omnipaque 350 was delivered via a 18-gauge IV catheter in the right antecubital fossa, using a power injector and followed by 60 cc of normal saline bolus as a chaser. Collimated images were reformatted at 0.5 mm intervals, and sent to an offline independent workstation for interpretation, using 3D anatomic reconstructions: Curved multiplanar reconstructions, maximum intensity projections, and multiplanar imaging. No metoprolol was administered prior to scanning due to low baseline heart rate. 0.4 mg SL nitroglycerin was given. CORONARY ARTERY DESCRIPTIONS: The coronary arteries arise in normal position. Left main coronary artery: Normal caliber vessel that bifurcates into the LAD and LCx. No stenosis. Left anterior descending coronary artery: Normal caliber vessel and gives rise to diagonal and septal branches. No stenosis. Left circumflex coronary artery: Normal caliber, nondominant and gives rise to a large OM branch. No stenosis. Right coronary artery: Large, dominant vessel giving rise to the PL and PDA branches. No stenosis. CAD-RADs: 0, absence of CAD. Thoracic Aorta: Normal diameter Maribel Tracy MD Cardiovascular Disease [facility] MARIBEL TRACY MD December 22, 2024 18:23
[2024-12-22] MEDS: oxyCODONE/aceTAMIN 5/325MG TAB PO PRN (18:26)
[2024-12-22 20:00] VITALS: BP 152/92; PULSE 74; RESP 18; TEMP 97.9; O2SAT 97
[2024-12-22] MEDS: LoSARTan 50 MG TABLET PO SCH (20:13)
[2024-12-23 00:23] VITALS: BP 121/81; PULSE 79; RESP 17; TEMP 97.5
[2024-12-23 04:00] VITALS: BP 135/76; PULSE 80; RESP 18; TEMP 97.8
[2024-12-23 04:55] LABS: BASOPHILS # (AUTO) 0.05 K/uL (0.00-0.20); BASOPHILS % (AUTO) 0.8 % (0.0-5.0); EOSINOPHILS # (AUTO) 0.18 K/uL (0.00-0.70); EOSINOPHILS % (AUTO) 2.9 % (0.0-8.0); HEMATOCRIT 40.3 % (36-48); IMMATURE GRANULOCYTE ABSOLUTE 0.02 K/uL (0-1); LYMPHOCYTES # (AUTO) 2.5 K/uL (1.0-4.8); LYMPHOCYTES % (AUTO) 40.1 % (21.0-51.0); MEAN CORPUSCULAR HEMOGLOBIN 29.6 pg (27.0-33.0); MEAN CORPUSCULAR HGB CONC 33.3 g/dL (32.0-36.0); MEAN CORPUSCULAR VOLUME 89.2 fL (79-99); MONOCYTES # (AUTO) 0.6 K/uL (0.1-1.0); MONOCYTES % (AUTO) 9.4 % (3.0-13.0); NEUTROPHILS # (AUTO) 2.9 K/uL (1.8-7.7); NEUTROPHILS % (AUTO) 46.5 % (40.0-77.0); PLATELET COUNT (AUTO) 300 K/uL (130-400); RED BLOOD CELL COUNT(AUTO) 4.52 MIL/uL (4.00-5.50); RED CELL DISTRIBUTION WIDTH 12.2 % (11.0-15.5); WHITE BLOOD COUNT (AUTO) 6.3 K/uL (4.8-10.8)
[2024-12-23 05:07] LABS: ALBUMIN 3.3 g/dL (3.5-5.0); BILIRUBIN,TOTAL 0.3 mg/dL (0.2-1.0); CREATININE 0.9 mg/dL (0.5-1.0); MAGNESIUM 1.9 mg/dL (1.80-2.40); TOTAL PROTEIN, SERUM 6.5 g/dL (6.0-8.3)
[2024-12-23 07:56] VITALS: O2SAT 98
[2024-12-23 08:00] VITALS: BP 142/89; PULSE 78; RESP 18; TEMP 97.9
[2024-12-23] MEDS ORDERED: LOSA-418 PO (11:33)
--- NOTE | 2024-12-23 11:36 | PN ---
[facility] PROGRESS NOTE Date of Service: December 23, 2024 Time of Service: 11:28 SUBJECTIVE: [[ 12/21/24 PATIENT IS 49 YEARS OLD FEMALE WITH A PAST MEDICAL HISTORY OF DIABETES, HYPERTENSION, HYPERLIPIDEMIA, OBSTRUCTIVE SLEEP APNEA ON CPAP, COPD, ASTHMA, TONSILLECTOMY, CHOLECYSTECTOMY, WHO CAME TO EMERGENCY DEPARTMENT WITH A COMPLAINT OF CHEST PRESSURE. PATIENT STILL DID THAT THE SYMPTOMS BEGAN ABOUT 10:30 A.M. WHEN SHE WAS SITTING. PATIENT DENIES EATING OR DRINKING ANYTHING HOT OCCULT AT THAT MOMENT. PATIENT STATED THAT IT FELT LIKE SOMETHING IS SITTING ON HER CHEST AND SQUEEZING HER. PATIENT DENIES ANY RADIATION OF THE PAIN. PATIENT STATED THAT SHE FEELS A PRESSURE 8/10 ESPECIALLY WHEN SHE BREATHES IN WHEN SHE BREATHS OUT THE PRESSURE GOES AWAY. SHE HAS A PATIENT OF DR. RAJPUT FROM [facility]. HER NEXT APPOINTMENT IS DECEMBER 29, 2024 MOST RECENT VITAL SIGNS TEMPERATURE 97.9 PULSE 75 RESPIRATIONS 16 BLOOD PRESSURE 171/96, PATIENT IS ON ROOM AIR SATTING 98%. WBC 6.9 HEMOGLOBIN 14.2 HEMATOCRIT 42.3 PLATELETS 318 SODIUM 141 POTASSIUM 3.7 CO2 26 BUN 14 CREATININE 0.8 GFR 90 RANDOM GLUCOSE 170 TROPONIN NEGATIVE X2 BNP 7 URINALYSIS NEGATIVE. CHEST X-RAY CLEAR LUNGS. 2D ECHO PENDING PATIENT WILL BE ADMITTED UNDER HOSPITALIST CARE FOR FURTHER EVALUATION/RECOMMEN DATION. A.M. LABS. 12/22/24 patient was seen by nurse practitioner and physician during rounding in room ER five. Family members/ at the bedside. Patient continues to complain of chest pain. Chest x-ray showed clear lungs. As per licensing engineer p les is saw her licensing engineer Dr. Rajput in 06/2024. Back then she was sinus tachycardia on Holter. She also had a normal stress test in 2021. EKG no acute ST-T changes. 2D echo normal. As per licensing engineer patient will undergo chest CTA. Patient was started on metoprolol succinate 50 mg daily continue olmesartan 40 mg daily. Further evaluation based on a radiology results. All the labs and results were evaluated and explained to the patient and family at the bedside. We will continue to monitor patient in the meantime. A.m. labs] 12/23/24 patient was seen earlier patient reports no chest pain events overnight blood pressure controlled. Waiting for licensing engineer's for clearance leave okay to be discharged if no need for further intervention. REVIEW OF SYSTEMS CONSTITUTIONAL: Denies fevers, chills, or night sweats. No unintentional weight loss reported. NEUROLOGICAL: Denies headache, amaurosis fugax, motor weakness, sensory deficit, vertigo/spinning sensation, gait abnormalities, or tremors. ENT: No hearing loss, otalgia, otorrhea, rhinitis, rhinorrhea, hoarseness, or sore throat. CARDIOVASCULAR: Denies any dyspnea on exertion, orthopnea, paroxysmal nocturnal dyspnea, palpitations, life-threatening arrhythmias, claudication. COMPLAINS OF CHEST PRESSURE PULMONARY: Denies any shortness of breath, cough, phlegm/sputum, hemoptysis, pleuritic chest pain. SLEEP: Denies morning headaches, daytime somnolence or napping. Denies difficulty falling asleep, staying asleep, waking from sleep. Denies knowledge of snoring. GASTROINTESTINAL: Denies any type of dysphagia to either liquids or solids. Denies nausea, vomiting, pyrosis, early satiety, abdominal pain, diarrhea, constipation, or changes in stool consistency or caliber. Denies coffee-ground emesis, hematemesis, hematochezia, or melanotic stools. GENITOURINARY: Denies frequency, urgency, nocturia, hematuria or incontinence (Storage/Irritative symptoms.) Low urinary stream, straining to void, urinary intermittency or hesitancy, splitting of the voiding stream, terminal dribbling. ENDOCRINOLOGIC: Denies polyuria, polydipsia, polyphagia or heat/cold intolerances. HEMATOLOGIC: Denies thrombophilia/previous clots, or coagulopathy/bleeding disorders. ONCOLOGIC: Denies personal history of malignancy. DERMATOLOGIC: Denies rashes or pruritus. PSYCHIATRIC: Denies any suicidal or homicidal ideation. Denies hallucinations. PHYSICAL EXAM GENERAL APPEARANCE: The patient is awake, alert, and oriented, in no acute cardiopulmonary distress. NEUROLOGICAL: Cranial nerves II-XII grossly intact. Motor is 5/5 in bilateral upper and lower extremities proximal to distal. No sensory deficits. HEENT: Face is symmetric. Pupils are equal and reactive. Extraocular movements are intact. NECK: Supple. No JVD. No thyromegaly. No submental, submandibular, pre- /postauricular, occipital or supraclavicular lymphadenopathy. CHEST: Normal chest expansion. No Telemetry. LUNGS: Absence of any rales, rhonchi or any wheezing. CARDIOVASCULAR: Regular. S1 and S2 normal. No appreciable rubs, murmurs or gallops. ABDOMEN: Soft, nontender, and nondistended. There is no rebound, voluntary guarding, or rigidity. : Deferred. No Gray. EXTREMITIES: Non-edematous and not cyanotic. No clubbing. Good capillary refill. SKIN: No skin breakdown. Vital Signs (last 8hr) Date Time Temp Pulse Resp B/P (MAP) Pulse Ox O2 Delivery O2 Flow Rate FiO2 12/23/24 08:00 97.9 78 18 142/89 96 Room Air 12/23/24 07:56 98 Room Air* 0 21 12/23/24 04:00 97.9 80 18 135/76 98 Room Air LABS: Laboratory: Test 12/23/24 06:05 12/23/24 04:30 12/22/24 07:22 12/21/24 19:27 Range/Units Whole Blood Glucose 166 H 70-110 MG/DL White Blood Count 6.3 4.8-10.8 K/uL Red Blood Count 4.52 4.00-5.50 MIL/uL Hemoglobin 13.4 12.0-16.0 g/dL Hematocrit 40.3 36-48 % Mean Corpuscular Volume 89.2 79-99 fL Mean Corpuscular Hemoglobin 29.6 27.0-33.0 pg Mean Corpuscular Hemoglobin Concent 33.3 32.0-36.0 g/dL Red Cell Distribution Width 12.2 11.0-15.5 % Platelet Count 300 130-400 K/uL Mean Platelet Volume 9.1 7.5-10.5 fL Immature Granulocyte % (Auto) 0.3 0-1 % Neutrophils (%) (Auto) 46.5 40.0-77.0 % Lymphocytes (%) (Auto) 40.1 21.0-51.0 % Monocytes (%) (Auto) 9.4 3.0-13.0 % Eosinophils (%) (Auto) 2.9 0.0-8.0 % Basophils (%) (Auto) 0.8 0.0-5.0 % Neutrophils # (Auto) 2.9 1.8-7.7 K/uL Lymphocytes # (Auto) 2.5 1.0-4.8 K/uL Monocytes # (Auto) 0.6 0.1-1.0 K/uL Eosinophils # (Auto) 0.18 0.00-0.70 K/uL Basophils # (Auto) 0.05 0.00-0.20 K/uL Absolute Immature Granulocyte (auto 0.02 0-1 K/uL Nucleated Red Blood Cells 0.0 0.0-0.19 % Sodium Level 140 136-145 mmol/L Potassium Level 4.0 3.5-5.1 mmol/L Chloride Level 104 101-111 mmol/L Carbon Dioxide Level 26 21-32 mmol/L Blood Urea Nitrogen 14 7-18 mg/dL Creatinine 0.9 0.5-1.0 mg/dL Glomerular Filtration Rate Calc 78 >90 mL/min Random Glucose 186 H 70-105 mg/dL Total Calcium 8.5 8.5-10.1 mg/dL Magnesium Level 1.90 1.80-2.40 mg/dL Total Bilirubin 0.3 # 0.2-1.0 mg/dL Aspartate Amino Transf (AST/SGOT) 27 10-37 U/L Alanine Aminotransferase (ALT/SGPT) 36 # 12-78 U/L Alkaline Phosphatase 93 50-136 U/L B-Type Natriuretic Peptide 15 0-100 pg/mL Total Protein 6.5 6.0-8.3 g/dL Albumin 3.3 L 3.5-5.0 g/dL Hemoglobin A1c 8.0 H 4.0-6.0 % Estimated Average Glucose (eAG) 183 H 70-126 mg/dL Lactic Acid Level 1.5 0.8-2.5 mmol/L Direct Bilirubin 0.1 0.0-0.3 mg/dL Ammonia < 10 L 11-32 umol/L Total Creatine Kinase 31 # 21-232 U/L Lipase 56 16-77 U/L Procalcitonin < 0.05 L 0.05-0.5 ng/mL Influenza Type A Antigen Negative For Type A NEGATIVE Influenza Type B Antigen Negative For Type B NEGATIVE SARS-CoV-2 Antigen (Rapid) PRESUMPTIVE NEGATIVE NEGATIVE Test 12/21/24 13:33 12/21/24 11:29 Range/Units Troponin I High Sensitivity 8 4-50 ng/L Urine Color YELLOW YELLOW Urine Appearance CLOUDY H CLEAR Urine pH 5.0 5.0-8.0 Urine Specific [place] 1.028 1.001-1.031 Urine Protein NEGATIVE NEGATIVE mg/dL Urine Glucose (UA) 30 H NEGATIVE mg/dL Urine Ketones 5 H NEGATIVE mg/dL Urine Occult Blood NEGATIVE NEGATIVE Urine Nitrate NEGATIVE NEGATIVE Urine Bilirubin NEGATIVE NEGATIVE mg/dL Urine Urobilinogen 0.2 0.2-1.0 mg/dL Urine Leukocyte Esterase NEGATIVE NEGATIVE Cameron/uL Urine RBC 2-5 H 0-1 /HPF Urine WBC 2-5 H 0-1 /HPF Urine WBC Clumps (Auto) 0-1 /HPF Urine Squamous Epithelial Cells Rare 0-2 /HPF Urine Bacteria Rare None Seen /HPF Urine Opiates Screen NEGATIVE NEGATIVE Urine Barbiturates Screen NEGATIVE NEGATIVE Urine Phencyclidine Screen NEGATIVE NEGATIVE Urine Amphetamines Screen NEGATIVE NEGATIVE Urine Benzodiazepines Screen NEGATIVE NEGATIVE Urine Cocaine Screen NEGATIVE NEGATIVE Urine Marijuana (THC) Screen NEGATIVE NEGATIVE Current Medications Medications (Trade) Dose Ordered Sig/Shon Route PRN Reason Start Time Stop Time Status Last Admin Dose Admin Acetaminophen (TYLenol 325MG TAB) 650 mg Q4H PRN PO MILD PAIN (1-3) 12/21/24 16:30 01/20/25 16:29 12/22/24 10:49 650 MG Acetaminophen (TYLenol 325MG TAB) 650 mg Q6H PRN PO MILD PAIN (1-3) 12/21/24 16:30 12/23/24 11:27 DC Acetaminophen (TYLenol 325MG TAB) 650 mg Q6H PRN PO TEMPERATURE GREATER THAN 101.5 12/21/24 16:30 01/20/25 16:29 Al Hydroxide/Mg Hydroxide (MAALox PLUS 30ML) 30 ml Q6H PRN PO INDIGESTION 12/21/24 16:30 01/20/25 16:29 Aspirin (Aspirin 81mg Ec Tab) 81 mg DAILY PO 12/22/24 09:00 01/21/25 08:59 12/23/24 10:23 81 MG Atorvastatin Calcium (LIPItor 40MG) 40 mg HS PO 12/21/24 21:00 01/20/25 20:59 12/22/24 20:13 40 MG Clopidogrel Bisulfate (plaVIX 75MG) 75 mg DAILY PO 12/22/24 09:00 01/21/25 08:59 12/23/24 10:23 75 MG Dextrose (D50w) 50 ml AD PRN IV HYPOGLYCEMIA PROTOCOL 12/21/24 16:30 01/20/25 16:29 Diphenhydramine HCl (BENAdryl INJ) 25 mg Q6H PRN IV SEVERE ITCHING/RASH 12/21/24 16:30 01/20/25 16:29 Famotidine (Pepcid 20mg Vial) 20 mg BID IV 12/21/24 21:00 01/20/25 20:59 12/23/24 10:23 20 MG Famotidine (Pepcid 20mg Vial) 20 mg BID PRN IV NAUSEA/VOMITING 12/21/24 16:30 12/23/24 11:26 DC Glucagon (Glucagon 1mg Kit) 1 mg AD PRN IM HYPOGLYCEMIA PROTOCOL 12/21/24 16:30 01/20/25 16:29 Guaifenesin/ Dextromethorphan (RobiTUSSin DM 200/20MG 10ML) 10 ml Q4H PRN PO COUGH 12/21/24 16:30 01/20/25 16:29 Heparin Sodium (Porcine) (HEParin 5,000 UNIT VIAL) 5,000 unit BID SQ 12/21/24 21:00 01/20/25 20:59 12/23/24 10:29 5,000 UNIT Hydralazine HCl (APRESOLine 20MG INJ) 10 mg Q6H PRN IV For:SBP above 160;DBP above 90 12/21/24 16:30 01/20/25 16:29 12/21/24 21:21 10 MG Insulin Human Regular (humuLIN R 100 UNIT/ML 3ML) INSULIN SLIDING SCAL... ACHS SQ 12/21/24 16:30 01/20/25 16:29 12/22/24 11:30 5 UNIT Ketorolac Tromethamine (toRADol) 15 mg Q8H PRN IV MODERATE PAIN (4-6) 12/21/24 16:30 12/26/24 16:29 Lactulose (Constulose 20gm/ 30ml Udcup) 20 gm BID PRN PO CONSTIPATION 12/21/24 16:30 01/20/25 16:29 Losartan Potassium (CozAAR 50 mg TAB) 50 mg BID PO 12/22/24 21:00 01/21/25 20:59 12/23/24 10:23 50 MG Magnesium Sulfate 50 ml @ 0 mls/hr PROTOCOL PRN IV other 12/21/24 16:30 01/20/25 16:29 Metoprolol Tartrate (loprESSOR) 25 mg BID PO 12/22/24 10:30 12/22/24 10:45 DC Morphine Sulfate (morPHINE 2MG SYG) 1 mg Q4H PRN IVP SEVERE PAIN (7-10) 12/21/24 16:30 12/28/24 16:29 12/22/24 02:38 1 MG Nitroglycerin (Nitrostat) 0.4 mg AD PRN SL CHEST PAIN 12/21/24 15:30 12/22/24 10:26 DC Nitroglycerin (Nitrostat) 0.4 mg PROTOCOL PRN SL CHEST PAIN 12/21/24 16:30 01/20/25 16:29 Ondansetron HCl (zoFRAN 4MG INJ) 4 mg Q6H PRN IV NAUSEA/VOMITING 12/21/24 16:30 01/20/25 16:29 Oxycodone/ Acetaminophen (perCOCET) 1 tab Q6H PRN PO SEVERE PAIN (7-10) 12/21/24 16:30 12/23/24 11:27 DC 12/22/24 18:26 1 TAB Potassium Chloride 100 ml @ 100 mls/hr AD PRN IV POTASSIUM PROTOCOL 12/21/24 16:30 01/20/25 16:29 Potassium Chloride (K-Dur/Klor-Con 20meq) 20 meq AD PRN PO POTASSIUM PROTOCOL 12/21/24 16:30 01/20/25 16:29 Potassium Chloride (KCl 10% Elixir 20meq/15ml) 20 meq AD PRN PO POTASSIUM PROTOCOL 12/21/24 16:30 01/20/25 16:29 Zolpidem Tartrate (AmbIEN) 5 mg HS PRN PO INSOMNIA 12/21/24 16:30 01/20/25 16:29 DIAGNOSTICS / RADIOLOGY: [ ] ASSESSMENT: [ ACUTE HYPOXIC RESPIRATORY FAILURE POA EMERGENCY HYPERTENSION POA ACUTE CHEST PRESSURE POA 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 FALL PRECAUTIONS. WELL LIGHTED ROOM THROUGH THE DAY AND MINIMIZE INTERRUPTIONS THROUGH THE NIGHT TO PREVENT ACUTE DELIRIUM. PULMONARY: CHEST X-RAY CLEAR LUNGS SUPPLEMENTAL 02 NEEDED BIPAP NECESSARY, FOR RESPIRATORY DISTRESS TITRATE FIO2 TO KEEP SPO2 > OR = 90% DUONEBS AND CPT NEEDED IS HOURLY WHILE AWAKE FOR PULMONARY HYGIENE OUT OF BED TO CHAIR TOLERATED VAP BUNDLE MAINTAIN ASPIRATION PRECAUTIONS AT ALL TIMES CARDIOVASCULAR: 2D ECHO normal As per licensing engineer chest CTA ordered. Pending CTA chest FOLLOW HEMODYNAMICS. VITAL SIGNS PER FACILITY PROTOCOL GI & NUTRITION: CONTINUE NUTRITIONAL SUPPORT ASPIRATIONS PRECAUTIONS PROKINETIC AGENTS AND LAXATIVES NEEDED KIDNEYS & ELECTROLYTES: STRICT MONITORING OF INTAKE AND OUTPUT DAILY WEIGHTS AVOID NEPHROTOXIC AGENTS MONITOR ELECTROLYTES AND REPLACE NEEDED GOAL URINE OUTPUT OF 30ML/HR OR 0.5ML/KG/HR MEDICATIONS TO BE DOSED ACCORDING TO RENAL FUNCTION. AVOID CONTRAST IF POSSIBLE ENDOCRINE: MAINTAIN BLOOD GLUCOSE BETWEEN 100-180 AT ALL TIMES. INSULIN SLIDING SCALE FOR BLOOD GLUCOSE MANAGEMENT HYPOGLYCEMIA AND HYPERGLYCEMIA PROTOCOL IN PLACE INFECTIOUS DISEASE: TREND TEMPERATURE, WBC AND PROCALCITONIN LEVEL FOLLOW CULTURES, DEESCALATE ANTIBIOTICS SOON POSSIBLE. PANCULTURE IF NEW ONSET FEVER HEMATOLOGY & COAGULATION: MONITOR H&H. KEEP HGB > 7 TRANSFUSE 1 UNIT OF PRBC FOR HGB < 7 TRANSFUSE 1 PACK OF PLATELETS OF PLATELETS < 20, 000 WATCH FOR ANY SIGNS AND SYMPTOMS OF BLEEDING SKIN: PRESSURE ULCER PREVENTION PER FACILITY PROTOCOL SPECIALTY MATTRESS NEEDED TREATMENT PLAN DISCUSSED WITH PATIENT AND FAMILY AT THE BEDSIDE MEDICATIONS TO BE RECONCILED ONCE OBTAINED BY PATIENT AND/OR FAMILY AND AVAILABLE TO BE RECONCILED IN COMPUTER P.R.N. MEDICATION FOR PAIN NAUSEA AND VOMITING QUESTIONS WERE ANSWERED WE WILL CONTINUE TO MONITOR THE PATIENT CLOSELY CODE STATUS: FULL RESUSCITATION DISPOSITION: Home ] ATTESTATION BY PHYSICIAN I have seen and examined the patient. I reviewed the documentation, medical decision making, and treatment plan as noted by the mid-level provider above. I agree with the findings and plan of care. LEONARDO HERNANDEZ MD, ELIZABETH NP December 23, 2024 11:36
[2024-12-23 12:00] VITALS: BP 156/95; PULSE 79; RESP 18; TEMP 98.1
--- NOTE | 2024-12-23 12:20 | PN ---
[facility] CARDIOLOGY PROGRESS NOTE Date Patient Seen: December 23, 2024 Time of Visit: 12:17 Interval History: [No acute events overnight. The patient has no further chest pain, palpitations, dyspnea or any other anginal equivalents. The patient underwent coronary CTA yesterday that revealed patent coronaries CAD-RAD 0. ] Physical Examination: GENERAL: [No acute distress.] HEAD: [Normal with no signs of head trauma.] EYES: [PERRLA, EOMI, conjunctiva and sclera normal.] ENT: [Hearing grossly intact, normal oropharynx.] NECK: [Supple without JVD. There is no tenderness, lymphadenopathy, or masses. No thyromegaly. Normal carotid upstrokes without bruits.] LUNGS: [Clear breath sounds bilaterally.No wheezes, or rhonchi.] HEART: [Normal rate and rhythm. Normal S1 and S2 without mumurs, gallop or rub.] VASC: [Peripheral pulses +2 bilaterally.] ABD: [Bowel sounds normal, soft, nontender, no masses, no organomegaly. No audible bruits.] : [Not examined] LYMPH: [No lymphadenopathy noted.] EXT: [No clubbing, cyanosis or edema.] SKIN: [No rashes or lesions noted.] NEURO: [Awake, alert, and oriented x3. No focal sensory or strength deficits noted.] Laboratory: [ ] Hematology Labs: Test 12/23/24 04:30 Range/Units White Blood Count 6.3 4.8-10.8 K/uL Red Blood Count 4.52 4.00-5.50 MIL/uL Hemoglobin 13.4 12.0-16.0 g/dL Hematocrit 40.3 36-48 % Mean Corpuscular Volume 89.2 79-99 fL Mean Corpuscular Hemoglobin 29.6 27.0-33.0 pg Mean Corpuscular Hemoglobin Concent 33.3 32.0-36.0 g/dL Red Cell Distribution Width 12.2 11.0-15.5 % Platelet Count 300 130-400 K/uL Mean Platelet Volume 9.1 7.5-10.5 fL Immature Granulocyte % (Auto) 0.3 0-1 % Neutrophils (%) (Auto) 46.5 40.0-77.0 % Lymphocytes (%) (Auto) 40.1 21.0-51.0 % Monocytes (%) (Auto) 9.4 3.0-13.0 % Eosinophils (%) (Auto) 2.9 0.0-8.0 % Basophils (%) (Auto) 0.8 0.0-5.0 % Neutrophils # (Auto) 2.9 1.8-7.7 K/uL Lymphocytes # (Auto) 2.5 1.0-4.8 K/uL Monocytes # (Auto) 0.6 0.1-1.0 K/uL Eosinophils # (Auto) 0.18 0.00-0.70 K/uL Basophils # (Auto) 0.05 0.00-0.20 K/uL Absolute Immature Granulocyte (auto 0.02 0-1 K/uL Nucleated Red Blood Cells 0.0 0.0-0.19 % Chemistry Labs: Test 12/23/24 11:32 12/23/24 04:30 12/22/24 07:22 12/21/24 13:33 Range/Units Whole Blood Glucose 229 H 70-110 MG/DL Sodium Level 140 136-145 mmol/L Potassium Level 4.0 3.5-5.1 mmol/L Chloride Level 104 101-111 mmol/L Carbon Dioxide Level 26 21-32 mmol/L Blood Urea Nitrogen 14 7-18 mg/dL Creatinine 0.9 0.5-1.0 mg/dL Glomerular Filtration Rate Calc 78 >90 mL/min Random Glucose 186 H 70-105 mg/dL Total Calcium 8.5 8.5-10.1 mg/dL Magnesium Level 1.90 1.80-2.40 mg/dL Total Bilirubin 0.3 # 0.2-1.0 mg/dL Aspartate Amino Transf (AST/SGOT) 27 10-37 U/L Alanine Aminotransferase (ALT/SGPT) 36 # 12-78 U/L Alkaline Phosphatase 93 50-136 U/L B-Type Natriuretic Peptide 15 0-100 pg/mL Total Protein 6.5 6.0-8.3 g/dL Albumin 3.3 L 3.5-5.0 g/dL Hemoglobin A1c 8.0 H 4.0-6.0 % Estimated Average Glucose (eAG) 183 H 70-126 mg/dL Lactic Acid Level 1.5 0.8-2.5 mmol/L Direct Bilirubin 0.1 0.0-0.3 mg/dL Ammonia < 10 L 11-32 umol/L Total Creatine Kinase 31 # 21-232 U/L Lipase 56 16-77 U/L Procalcitonin < 0.05 L 0.05-0.5 ng/mL Troponin I High Sensitivity 8 4-50 ng/L Diagnostics / Radiology: [Copy/Paste Echos/Imaging Report here] Impression and Plan: Chest pain rule out Hypertension SANA Plan: [#chest pain -Trop neg, bnp neg -ECG no ST-T changes -Echo is normal -[ Chest pain rule out htn sana] Plan: [# noncardiac atypical chest pain -Trop neg, bnp neg -ECG no ST-T changes -Echo is normal -CCTA revealed patent coronaries with a CAD-RAD 0 No need for further testing #HTN -continue metoprolol succ 50 mg qd and olmesartan 40 mg qd at home -allergy to lisinopril, amlodipine and labetalol Thank you for this consult cardiology will sign off at this time the patient will follow up with clinic 1-2 weeks after discharge with Dr. Baxter] Latrell billings MD ATTESTATION BY PHYSICIAN I have seen and examined the patient, reviewed the above documentation, participated in medical decision making, made necessary modifications, and agree with the treatment plan as documented by my mid-level provider above. MD SHINE Mendoza JAMES R MD December 23, 2024 12:20
--- NOTE | 2024-12-23 13:40 | NUR ---
PATIENT DISCHARGED. FOLLOW UP APPOINTMENTS WITH PCP AND FACILITIES MAINTENANCE SUPERVISOR EXPLAINED AND CONTINUED AND NEW MEDICATIONS ALSO EXPLAINED. IV REMOVED INTACT. TELEMONITOR REMOVED. ALL ITEM GATHERED BY PATIENT AND TAKEN WITH FAMILY. PATIENT WHEEL DOWN ALERT AND ORIENTED X4. ALL QUESTIONS AND CONCERNS ANSWERED.
--- NOTE | 2024-12-24 08:21 | DS ---
Discharge Summary Hospital Course Summary: [ 12/21/24 PATIENT IS 49 YEARS OLD FEMALE WITH A PAST MEDICAL HISTORY OF DIABETES, HYPERTENSION, HYPERLIPIDEMIA, OBSTRUCTIVE SLEEP APNEA ON CPAP, COPD, ASTHMA, TONSILLECTOMY, CHOLECYSTECTOMY, WHO CAME TO EMERGENCY DEPARTMENT WITH A COMPLAINT OF CHEST PRESSURE. PATIENT STILL DID THAT THE SYMPTOMS BEGAN ABOUT 10:30 A.M. WHEN SHE WAS SITTING. PATIENT DENIES EATING OR DRINKING ANYTHING HOT OCCULT AT THAT MOMENT. PATIENT STATED THAT IT FELT LIKE SOMETHING IS SITTING ON HER CHEST AND SQUEEZING HER. PATIENT DENIES ANY RADIATION OF THE PAIN. PATIENT STATED THAT SHE FEELS A PRESSURE 8/10 ESPECIALLY WHEN SHE BREATHES IN WHEN SHE BREATHS OUT THE PRESSURE GOES AWAY. SHE HAS A PATIENT OF DR. BAXTER FROM [facility]. HER NEXT APPOINTMENT IS DECEMBER 29, 2024 MOST RECENT VITAL SIGNS TEMPERATURE 97.9 PULSE 75 RESPIRATIONS 16 BLOOD PRESSURE 171/96, PATIENT IS ON ROOM AIR SATTING 98%. WBC 6.9 HEMOGLOBIN 14.2 HEMATOCRIT 42.3 PLATELETS 318 SODIUM 141 POTASSIUM 3.7 CO2 26 BUN 14 CREATININE 0.8 GFR 90 RANDOM GLUCOSE 170 TROPONIN NEGATIVE X2 BNP 7 URINALYSIS NEGATIVE. CHEST X-RAY CLEAR LUNGS. 2D ECHO PENDING PATIENT WILL BE ADMITTED UNDER HOSPITALIST CARE FOR FURTHER EVALUATION/RECOMMENDATION. A.M. LABS. 12/22/24 patient was seen by nurse practitioner and physician during rounding in room ER five. Family members/ at the bedside. Patient continues to complain of chest pain. Chest x-ray showed clear lungs. As per head worker patient is saw her head worker Dr. Baxter in 06/2024. Back then she was sinus tachycardia on Holter. She also had a normal stress test in 2021. EKG no acute ST-T changes. 2D echo normal. As per head worker patient will undergo chest CTA. Patient was started on metoprolol succinate 50 mg daily continue olmesartan 40 mg daily. Further evaluation based on a radiology results. All the labs and results were evaluated and explained to the patient and family at the bedside. We will continue to monitor patient in the meantime. A.m. labs] Late entry 12/23/24 patient was seen earlier patient reports no chest pain events overnight blood pressure controlled. Waiting for head worker's for clearance leave okay to be discharged if no need for further intervention. Patient is clinically cleared by head worker's reports no further chest pain palpitation shortness for breath. coronary CTA yesterday that revealed patent coronaries CAD-RAD 0. ] Echo is normal EKG no ST T changes chest pain ruled out Procedure(s): REASON: CHEST PAIN ORDERING PHYSICIAN: ANU RIOJAS MD PROCEDURE: CTCAWC - CT CARDIAC ANGIO W/CONT. CCTA CT OF THE CHEST WITH CONTRAST- CT Cardiac Angio co-interpretation This is done as part of the CT cardiac angiogram study. The interpretation of the coronary arteries will be done by head worker in a separate report. History: over-read Comparison: none CT Dose Index (CTDI): 77.90 mGy Dose Length Product (DLP): 493.40 total mGy PROTOCOL: Examination is done at 2.5 millimeter volumetric acquisition after contrast administration with Isovue 370, 100 cc IV, without complications. Photography is done at 5 millimeter thick intervals for the thorax. The examination begins above the heart and therefore the lung apices are incompletely included. The rest of the left lung is included but the right lung is only included up to its middle third. The periphery of the right lung is not included in the study. FINDINGS: The visualized part of the airway is preserved. The bony and soft tissue structures of the chest wall are unremarkable. The aorta is unremarkable. No mediastinal lymphadenopathy is seen. The lung windows demonstrate no worrisome pulmonary nodules, masses or infiltrates. There is no evidence of pulmonary embolism in the visualized lung segments. The upper abdominal views are unremarkable. Impression: No significant abnormalities identified. REASON: chf ORDERING PHYSICIAN: YASMIN HESS APRN PROCEDURE: ECHO [facility] - ECHO 2-D COMPLETE APPROVED REPORT EXAM: Two-dimensional and M-mode echocardiogram with Doppler and color Doppler. INDICATION ICD: Congestive heart failure 2D Dimensions RVDd 3.6 cm LVEF(%) 54.3 (>50%) LVED Vol(simp.) 50.0 mL IVSd 1.2 (0.7-1.1cm) FS(%) 28 % LVES Vol(simp.) 19.0 mL LVDd 3.9 (3.8-5.6cm) LA (2D) 3.6 (1.6-4.0cm) LVEF(%, simp.) 63 % PWd 0.9 (0.7-1.1cm) Ao Root(2D) 2.7 (2.0-3.7cm) LA ESV INDEX (BP) 24.16 mL/m2 IVSs 1.2 cm LVOT diam 2.0 (1.8-2.4cm) LVDs 2.8 (2.5-4.0cm) IVC diam 1.7 cm PWs 1.4 cm Deformation Strain Apical 4 -15.9 % Apical 2 -18.2 % Apical 3 -20.1 % Global Strain -18.1 % M-Mode Dimensions EPSS 0.4 cm LA (MM) 4.0 (1.6-4.0cm) Ao Root(MM) 3.0 (2.0-3.7cm) Aortic Valve AoV Vmax 1.3 m/s Ao Peak GR 6.8 mmHg LVOT Vmax 1.1 m/s AoV VTI 0.2 m Ao Mean GR 3.5 mmHg LVOT VTI 0.23 m ARSENIO (VMAX) 2.69 cm2 ARSENIO (VTI) 3.2 cm2 Mitral Valve MV E Vmax 83.1 cm/s DECEL Time 157 ms MV A Vmax 76.7 cm/s P 1/2 T 58 ms E/A ratio 1.1 MVA (PHT) 3.8 cm2 TDI E/E' Medial 12.9 E/E' Lateral 10.0 Medial E' Peak V 6.45 cm/s Lateral E' Peak V 8.27 cm/s Pulmonary Valve PV Vmax 0.9 m/s PV VTI 0.20 m PV Mean GR 1.8 mmHg PV Peak GR 2.9 mmHg Left Ventricle The left ventricle is normal size. There is mild left ventricular wall thickness. LVEF is 60-65%. The left ventricular diastolic function is normal. Right Ventricle The right ventricle is normal size. The right ventricular systolic function is normal. Atria The left atrium size is normal. The right atrium size is normal. Aortic Valve The aortic valve is trileaflet normal in structure. No aortic regurgitation is present. There is no aortic valvular stenosis. Mitral Valve The mitral valve is normal in structure. There is no mitral valve regurgitation noted. There is no mitral valve stenosis. Tricuspid Valve The tricuspid valve is normal in structure. There is trace of tricuspid valve regurgitation noted. Pulmonic Valve The pulmonary valve is normal in structure. There is no pulmonic valvular regurgitation. Great Vessels The aortic root is normal in size. The IVC is normal in size and collapses >50% with inspiration. Pericardium There is no pericardial effusion. Other Information Quality : Adequate Conclusion The left ventricle is normal size. There is mild left ventricular wall thickness. LVEF is 60-65%. The left ventricular diastolic function is normal. The right ventricle is normal size. The right ventricular systolic function is normal. The left atrium size is normal. The right atrium size is normal. No valvular pathology. There is no pericardial effusion. 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 Vee Cui Heart clinic: as scheduled, PCP: Rosana Greenwood 2-3 days PROCEDURES: none IMAGING (S) report attached to summary : Coronary CT, echo MICROBIOLOGY: report attached to summary; none ACTIVITY: Ad erika HOME MEDICATIONS remain the same CHANGES ON HOME MEDICATIONS none NEW MEDICATIONS losartan 50 mg p.o. b.i.d. TEACHING: Side effects adverse reactions of new medication instructed patient to monitor blood pressure and presents to head worker's on follow-up appointment. Emergency instructions: The patient was instructed to present to the nearest Emergency Department or call 911 should their symptoms return or worsen. Home Medications: Active Scripts Losartan Potassium (Cozaar) 50 Mg Tablet, 50 MG PO BID for 30 Days, #60 TAB Prov:JONATHAN VERGARA NP 12/23/24 Reported Medications Levocetirizine Dihydrochloride (Levocetirizine Dihydrochloride) 5 Mg Tablet, 1 TAB PO DAILY for 30 Days, #30 TAB 0 Refills 12/22/24 Glimepiride (Glimepiride) 4 Mg Tablet, 1 TAB PO BID for 30 Days, #60 TAB 0 Refills 12/22/24 Metformin HCl (Metformin HCl ER) 1,000 Mg Tab.er.24, 1 TAB PO BID for 30 Days, #30 TAB 0 Refills 12/22/24 Amitriptyline HCl (Amitriptyline HCl) 10 Mg Tablet, 1 TAB PO HS for 30 Days, #30 TAB 0 Refills 12/22/24 Meloxicam (Meloxicam) 7.5 Mg Tablet, 1 TAB PO DAILY PRN for PAIN for 30 Days, #30 TAB 0 Refills 12/22/24 Ezetimibe/Rosuvastatin Calcium (Rosuvastatin-Ezetimibe 10-10Mg) 10 Mg-10 Mg Tablet, 1 EACH PO HS, TAB 12/22/24 Semaglutide (Ozempic) 1 Mg/0.75 Ml (4 Mg/3 Ml) Pen.injctr, 1 MG SQ QWEEK for 30 Days, #3 ML 0 Refills 12/22/24 Linaclotide (Linzess) 145 Mcg Capsule, 1 CAP PO DAILY for 30 Days, #30 CAP 0 Refills 12/22/24 Famotidine (Famotidine) 40 Mg Tablet, 1 TAB PO DAILY for 30 Days, #30 TAB 0 Refills 12/22/24 Esomeprazole Magnesium (Esomeprazole Magnesium) 40 Mg Capsule.dr, 1 CAP PO DAILY for 30 Days, #30 CAP 0 Refills 12/22/24 Promethazine HCl (Promethazine HCl) 12.5 Mg Tablet, 12.5 MG PO TID PRN for NAUSEA/VOMITING, TAB 04/14/17 Albuterol Sulfate (Proair Respiclick) 90 Mcg Aer.pow.ba, 90 MCG IH [id number] PRN for SHORTNESS OF BREATH 04/14/17 Pantoprazole Sodium (Pantoprazole Sodium) 40 Mg Tablet.dr, 40 MG PO AM, TAB 04/14/17 Nitroglycerin (Nitrostat) 0.4 Mg Tab.subl, 0.4 MG SL STAT PRN for CHEST PAIN, TAB.SL 04/14/17 Escitalopram Oxalate (Lexapro) 20 Mg Tablet, 20 MG PO AM, TAB 04/14/17 Aspirin (Aspir 81) 81 Mg Tablet.dr, 81 MG PO AM, TAB 04/14/17 Atorvastatin Calcium (LIPITOR) 20 Mg Tab, 20 MG PO HS, TAB 04/14/17 Discontinued Reported Medications Tramadol Hcl (Tramadol HCl) 50 Mg Tablet, 50 MG PO HS PRN for PAIN LEVEL 4 TO 6, TAB 04/14/17 Canagliflozin (Invokana) 300 Mg Tablet, 300 MG PO HS, TAB 04/14/17 Hydroxychloroquine Sulfate (Hydroxychloroquine Sulfate) 200 Mg Tablet, 200 MG PO BID, TAB 04/14/17 Gabapentin (Gabapentin) 100 Mg Capsule, 100 MG PO BID, CAP 04/14/17 Valsartan (Diovan) 160 Mg Tablet, 160 MG PO HS, TAB 02/17/16 Sitagliptin Phosphate (Januvia) 100 Mg Tablet, 100 MG PO DAILY, TAB 02/17/16 Discontinued Scripts Lactobacillus Rhamnosus GG (Culturelle) 1 Each Capsule, 1 EACH PO DAILY, #30 CAP Prov:SHAMIR MCKEON MD 04/15/17 New Medications: Losartan Potassium (Cozaar) 50 Mg Tablet 50 MG PO BID for 30 Days, #60 TAB Continued Medications: Albuterol Sulfate (Proair Respiclick) 90 Mcg Aer.pow.ba 90 MCG IH [id number] PRN for SHORTNESS OF BREATH Amitriptyline HCl (Amitriptyline HCl) 10 Mg Tablet 1 TAB PO HS for 30 Days, #30 TAB 0 Refills Aspirin (Aspir 81) 81 Mg Tablet.dr 81 MG PO AM, TAB Atorvastatin Calcium (Lipitor) 20 Mg Tab 20 MG PO HS, TAB Escitalopram Oxalate (Lexapro) 20 Mg Tablet 20 MG PO AM, TAB Esomeprazole Magnesium (Esomeprazole Magnesium) 40 Mg Capsule.dr 1 CAP PO DAILY for 30 Days, #30 CAP 0 Refills Ezetimibe/Rosuvastatin Calcium (Rosuvastatin-Ezetimibe 10-10Mg) 10 Mg-10 Mg Tablet 1 EACH PO HS, TAB Famotidine (Famotidine) 40 Mg Tablet 1 TAB PO DAILY for 30 Days, #30 TAB 0 Refills Glimepiride (Glimepiride) 4 Mg Tablet 1 TAB PO BID for 30 Days, #60 TAB 0 Refills Levocetirizine Dihydrochloride (Levocetirizine Dihydrochloride) 5 Mg Tablet 1 TAB PO DAILY for 30 Days, #30 TAB 0 Refills Linaclotide (Linzess) 145 Mcg Capsule 1 CAP PO DAILY for 30 Days, #30 CAP 0 Refills Meloxicam (Meloxicam) 7.5 Mg Tablet 1 TAB PO DAILY PRN for PAIN for 30 Days, #30 TAB 0 Refills Metformin HCl (Metformin HCl ER) 1,000 Mg Tab.er.24 1 TAB PO BID for 30 Days, #30 TAB 0 Refills Nitroglycerin (Nitrostat) 0.4 Mg Tab.subl 0.4 MG SL STAT PRN for CHEST PAIN, TAB.SL Pantoprazole Sodium (Pantoprazole Sodium) 40 Mg Tablet.dr 40 MG PO AM, TAB Promethazine HCl (Promethazine HCl) 12.5 Mg Tablet 12.5 MG PO TID PRN for NAUSEA/VOMITING, TAB Semaglutide (Ozempic) 1 Mg/0.75 Ml (4 Mg/3 Ml) Pen.injctr 1 MG SQ QWEEK for 30 Days, #3 ML 0 Refills Time spent arranging discharge: 31-60 minutes ATTESTATION BY PHYSICIAN I have seen and examined the patient. I reviewed the documentation, medical decision making, and treatment plan as noted by the mid-level provider above. I agree with the findings and plan of care. LEONARDO HERNANDEZ MD, ELIZABETH NP December 24, 2024 08:21
== END 2024-12-23 13:15 | disposition home or self-care (01) ==
LOC: EDH 11:13 → EDHIP 16:21 → INTOOBSV 16:21 → 4CH 12-22 13:50
PROVIDERS: ADMIT Internal Medicine; ATTEND Internal Medicine
DX: E11.649 Type 2 diabetes mellitus with hypoglycemia without coma (principal); Z20.822 Contact with and (suspected) exposure to COVID-19; E78.5 Hyperlipidemia, unspecified; G47.33 Obstructive sleep apnea (adult) (pediatric); M79.7 Fibromyalgia; J45.909 Unspecified asthma, uncomplicated; M06.9 Rheumatoid arthritis, unspecified; E66.01 Morbid (severe) obesity due to excess calories; I11.0 Hypertensive heart disease with heart failure; I50.9 Heart failure, unspecified; K52.9 Noninfective gastroenteritis and colitis, unspecified; Z79.899 Other long term (current) drug therapy; Z90.49 Acquired absence of other specified parts of digestive tract; Z98.890 Other specified postprocedural states; Z68.39 Body mass index [BMI] 39.0-39.9, adult; Z88.1 Allergy status to other antibiotic agents; Z88.8 Allergy status to other drugs, medicaments and biological substances
CPT/HCPCS: 96372 ×3; 96375; 99285; 82550 ×2; 84484 ×2; 80048 ×2; 83880 ×3; 80305; 85025 ×3; 87804 ×2; 82948 ×8; 87426; 81001; 36415 ×3; 71045; 96374; 93005; 96376 ×2; 83036; 80076; 83735 ×2; 82140; 83690; 83605; 75574; 93306; 93356; 84145; 80053; 97161; 97116; 97530; J3490 ×5; J2270 ×2; J0360; J2405; J1885; J1644 ×4; J2470; G0378 ×18; J1815 ×2; Q9967